=== PATIENT | female | born 1925 | race Caucasian/White ===

== ENCOUNTER 2016-08-20 01:13 | Inpatient (IN) | payer MEDICARE, OTHER ==
[~2016-08-20] VITALS: Ht 162.6 cm; Wt 83.5 kg
--- NOTE | ~2016-08-20 | H ---
[facility] [place] [address] HISTORY AND PHYSICAL Name: DEENA ARRIAGA I Room #: 437-P [facility] IN M.R.#: [id number] Admission: 08/20/16 Attend Phys: Trevor Matthews Discharge: 08/22/16 Date of : [birth year] Report #: [id number] THIS REPORT FOR: //name// CC: FAM physician/PCP Trevor Matthews DATE OF SERVICE: 08/20/2016 ATTENDING PHYSICIAN: Dr. Matthews. PRIMARY CARE PHYSICIAN: Dr. Juan David Jonas. CHIEF COMPLAINT: Shortness of breath. HISTORY OF PRESENT ILLNESS: The patient is an 89-year-old female who denies any prior history of lung disease or congestive heart failure. She says she has had increasing shortness of breath over the last month, but it has been significantly worse in the last 4 days. She has had some associated running nose, cough which has been nonproductive and dizziness. Her friend came to see her today and actually called EMS because of her labored breathing. When EMS arrived, her oxygen saturation was 83% on room air. She has never required oxygen at home. She was taken initially to [facility] and was evaluated there and placed on BiPAP because of respiratory distress. She did receive Solu-Medrol, DuoNeb, nitro paste as well as a dose of Lasix 40 mg IV. She requested to be transferred to [facility] because she had been here previously and her primary care physician is closer. She arrived here this morning on nonbreather and states that she is breathing much better at this time. She really did not have much diuresis after she was given Lasix. She is denying any chest pain or palpitations. She has noticed slight increase in her chronic lower extremity edema over the last few weeks, but she really does not weigh herself. She denies any history of DVT or PE. She did have a CTA of the chest done at [facility], which did not show any PE or dissection, but her CT and chest x-ray did show congestive heart failure. PAST MEDICAL HISTORY: Hypertension, melanoma, breast cancer, endometrial cancer, osteoarthritis. PAST SURGICAL HISTORY: Left and right lumpectomy, total abdominal hysterectomy with bilateral salpingo-oophorectomy, left ankle replacement, left knee scope and ganglionectomy. ALLERGIES: FOSAMAX cause tongue swelling. HOME MEDICATIONS: Have not yet been up dated. SOCIAL HISTORY: The patient is a . She lives alone. She has retired. [facility] [address] [place] [address] HISTORY AND PHYSICAL Name: DEENA ARRIAGA I Room #: 437-P [facility] IN .R.#: [id number] Admission: 08/20/16 Attend Phys: Trevor Matthews Discharge: 08/22/16 Date of : [birth year] Report #: [id number] She is a never smoker, denies any alcohol use. FAMILY HISTORY: Significant for breast cancer. REVIEW OF SYSTEMS: The patient does have a history of breast cancer and has been followed by Dr. Niño. She underwent surgery with bilateral lumpectomies as well as radiation treatment and had been on tamoxifen. She says she had a recent visit with Dr. Niño and was told she is in remission. All other 12-point review of systems was reviewed with the patient, otherwise negative unless stated in HPI. PHYSICAL EXAMINATION: GENERAL: The patient is an alert female in no acute distress. VITAL SIGNS: Temperature is 36.7, heart rate 79, respirations 22, blood pressure is 168/49, oxygen is 92% on 5 liters nasal cannula. HEENT: PERRLA. Sclerae is nonicteric. Oral mucosa is pink and moist. NECK: Supple, no JVD noted. CARDIAC: Heart tones are regular with an occasional skipped beat. No murmurs, rubs or gallops. RESPIRATORY: Breath sounds are clear bilateral upper lobes. She does have fine crackles in bilateral bases. Breathing is still somewhat labored and she is using her abdominal muscles, but she is able to speak in full sentences. VASCULAR: She does have 2 to 3+ bilateral lower extremity edema that extends up to her knees. Pedal pulses are 2+. NEUROLOGIC: The patient is alert and oriented x 3. Speech is clear. She is moving all extremities equally. No focal weakness noted. LABORATORY DATA AND DIAGNOSTICS: WBC is 12.9, hemoglobin 12.6, platelets 400. Sodium 141, potassium 4.3, BUN 17, creatinine 0.9, glucose 115. LFTs are within normal limits. INR is 1.1. Cardiac enzymes are negative. BNP 4175. D-dimer 1.03. EKG showing sinus rhythm. Chest x-ray showed congestive heart failure and CT angio of the chest was negative for PE and dissection, but did show heart failure as well. The labs and imaging were all done at [facility]. ASSESSMENT AND PLAN: 1. Acute fluid overload. She likely has congestive heart failure. EF is unknown at this time. We will check an echocardiogram this morning. We will give another dose of IV Lasix now. Check ABGs. If she remains hypoxic, we will place back on BiPAP, but she has significantly improved. Continue with breathing treatments. 2. Hypertension. We will try to clarify her home medications and resume. 3. History of breast cancer. She is currently in remission and off any treatment. 4. Deep vein thrombosis prophylaxis: Start Lovenox. [facility] [address] [place] [address] HISTORY AND PHYSICAL Name: DEENA ARRIAGA I Room #: 437-P [facility] IN M.R.#: [id number] Admission: 08/20/16 Attend Phys: Trevor Matthews Discharge: 08/22/16 Date of : [birth year] Report #: [id number] We will continue to follow the patient closely throughout the hospitalization and make changes based on clinical status. <ELECTRONICALLY SIGNED> By: LADONNA Dean 08/23/16 0646 0614 0735 LADONNA Dean /nt
--- NOTE | ~2016-08-20 | EKG ---
[address] [address] ELECTROCARDIOGRAM REPORT Name: DEENA ARRIAGA I Room #: 437-P ADM IN M.R.#: [id number] Admission: 08/20/16 Attend Phys: Trevor Matthews Discharge: Date of : [birth year] Report #: [id number] THIS REPORT FOR: //name// [facility] Test Date: 2016-08-20 Test Time: 07:03:53 Pat Name: DEENA ARRIAGA Department: Room: 437 P Gender: F Software Test Specialist: Erlin MOREJON : 1925 Requested By: Manisha Rock Order Number: [id number] MD: Kiran Medel Measurements Intervals [place] Rate: 79 P: 69 RI: 175 QRS: 62 QRSD: 94 T: -16 QT: 443 QTc: 508 Interpretive Statements Sinus rhythm Borderline T abnormalities, inferior leads Prolonged QT interval No previous ECG available for comparison Electronically Signed On 08-20-2016 9:02:45 ROUTE DRIVER by Kiran Medel [email or web address] <ELECTRONICALLY SIGNED> By: Kiran Medel MD 08/20/16901 2 2 Kiran Medel MD /RICK
--- NOTE | ~2016-08-20 | 2DMMODE ---
[facility] [place] [address] 2 D/M-MODE ECHOCARDIOGRAM Name: DEENA ARRIAGA I Room #: 437-P [facility] IN .R.#: [id number] Admission: 08/20/16 Attend Phys: Trevor Orellana Discharge: Date of : [birth year] Date of Service: 08/20/16 0919 Report #: [id number] THIS REPORT FOR: //name// Transthoracic Echocardiography Ordering physician: Manisha Rock Referring physician: Juan David Jonas Kate E. Clearing Supervisor: Shelley Mehta Indications/History: Heart failure, SOA. Hx: HTN BP: 139 / HR: 83bpm Height: 64in Weight: 184.6lb 63 Study data: M-mode, complete 2D, complete spectral Doppler, and color Doppler. Location: Echo laboratory. Routine. Image quality was adequate. 2D measurements Normal Normal LVID ED 44.2mm 36-57 IVS ED 11.2mm 6-11 LVID ES 27.2mm 23-40 LVPW ED 11mm 6-11 LA volume 41ml/m2 16-28 AoRoot diam 28.8mm 21-37 index ED LVOT diameter 18mm 18-23 Findings: Left ventricle: The cavity size was normal. Wall thickness was normal. Systolic function was normal. The estimated ejection fraction was in the range of 60% to 65%. Wall motion was normal. Right ventricle: The cavity size was normal. Systolic function was normal. Right atrium: The atrium was normal in size. Left atrium: The atrium was moderately dilated. Volume index: 41ml/m2 (S). Aortic valve: Thickened andcalcified leaflets. Doppler: There was mild stenosis. Mild regurgitation. Peak velocity: 246.4cm/s (S). Mean gradient: 12.9mm Hg (S). [facility] [address] [place] [address] 2 D/M-MODE ECHOCARDIOGRAM Name: DEENA ARRIAGA I Room #: 437-P [facility] IN M.R.#: [id number] Admission: 08/20/16 Attend Phys: Trevor Orellana Discharge: Date of : [birth year] Date of Service: 08/20/16 0919 Report #: [id number] Peak gradient: 24.3mm Hg (S). Mitral valve: Mildly thickened, mildly calcified leaflets . Doppler: There was no evidence for stenosis. Moderate to severe regurgitation. Peak E-wave velocity: 163.2cm/s. Peak gradient: 10.7mm Hg (D). Peak A-wave velocity: 106.4cm/s. Tricuspid valve: Structurally normal valve. Doppler: There was no evidence for stenosis. Mild-moderate regurgitation. Regurgitant peak velocity: 347.2cm/s. Peak RV-RA gradient: 48mm Hg (S). Pulmonic valve: Structurally normal valve. Doppler: There was no evidence for stenosis. Trivial regurgitation. Pericardium: There was no pericardial effusion. Pleura: There was a right pleural effusion. There was a left pleural effusion. Aorta: Aortic root: The aortic root was normal in size. Pulmonary artery: Systolic pressure was estimated to be 53mm Hg. Diastolic function: Features are consistent with a pseudonormal left ventricular filling pattern, with concomitant abnormal relaxation and increased filling pressure (grade 2 diastolic dysfunction). Systemic veins: Inferior vena cava: The vessel was normal in size; the respirophasic diameter changes were in the normal range (= 50%). Conclusions 1. Left ventricle: The cavity size was normal. Wall thickness was normal. Systolic function was normal. The estimated ejection fraction was in the range of 60% to 65%. 2. Left atrium: The atrium was moderately dilated. 3. Aortic valve: Thickened andcalcified leaflets. Mild regurgitation. 4. Mitral valve: Mildly thickened, mildly calcified leaflets . Moderate to severe regurgitation. 5. Pulmonic valve: Trivial regurgitation. 6. Tricuspid valve: Mild-moderate regurgitation. [facility] [address] [place] [address] 2 D/M-MODE ECHOCARDIOGRAM Name: DEENA ARRIAGA I Room #: 437-P [facility] IN [facility].#: [id number] Admission: 08/20/16 Attend Phys: Trevor Orellana Discharge: Date of : [birth year] Date of Service: 08/20/16918 Report #: [id number] 7. Pulmonary arteries: Systolic pressure was estimated to be 53mm Hg. <ELECTRONICALLY SIGNED> By: Dk Lester MD 08/20/16 1221 20 Dk Lester MD /alex
[~2016-08-20 01:13] MED LIST: ACETAMINOPHEN-1 EACH PO; ATENOLOL 50 MG50 M1 PO; BYSTOLIC 5 MG5 M1 PO; CALCIUM OYSTER500 MG PO; CHLORTHALIDONE25 MG PO; CITALOPRAM HBR40 MG; CLEOCIN HCL300 MG PO; CLONIDINE TTS TOP; DIPHENHYDRAMINE PO; FAMOTIDINE20 MG PO; FISH OIL 1,0001 EAC5 PO; FONDAPARINUX SQ; HYDROCODON-ACE1 EACH PO; LOVASTAT20 PO; MAG-OX 400 TAB400 M1 PO; MEDROLDOSEPACK; MIRALAX255 GM PO; MULTIVITAMINS PO; NOLVADEX20 MG PO; NORCO 5-325 TA1 EACH PO; NORVASC5 MG; POTASSIUM20 PO; PROVERA2.5 MG PO; TYLENOL PO; VITAMIN D400 UNI1 PO; VITAMIN E PO
[2016-08-20 02:30] VITALS: BP 156/79
[2016-08-20 04:00] LABS: ABG SAMPLE TYPE ARTERIAL; BE(vivo) -0.1 mmol/L (-2 to +3); HCO3 24.8 mmol/L (22.0-26.0); LACTATE 1.28 mmol/L (0.5-2.0); O2Hb 90.9 % (92.0-98.0); PCO2 41.5 mmHg (35.0-45.0); PO2 62.3 mmHg (80.0-100.0); pH 7.395 (7.360-7.450); sO2 91.8 % (92.0-98.0); tCO2 26.1 mmol/L (24.0-30.0)
[2016-08-20 04:01] LABS: STICK SITE RRA
[2016-08-20 04:48] LABS: HEMATOCRIT 38.4 % (37.0-47.0); HEMOGLOBIN 12.8 gm/dL (12.0-15.0); MCH 31.4 pg (26.0-34.0); MCHC 33.5 % (28.0-37.0); MCV 93.8 fL (80.0-100.0); RBC 4.09 mil/uL (4.20-5.00); RDW 12.6 % (10.5-14.5); WBC 10.5 thou/uL (4.0-11.0)
[2016-08-20 05:10] LABS: ANION GAP 10 mmol/L (7-16); BUN 16 mg/dL (7-18); CALCIUM 8.4 mg/dL (8.5-10.1); CHLORIDE 108 mmol/L (98-107); CHOLESTEROL 176 mg/dL (<200); CO2 27 mmol/L (21-32); CREATININE 0.9 mg/dL (0.6-1.3); GLUCOSE 147 mg/dL (70-99); HDL CHOLESTEROL 51 mg/dL (>40); LDL CHOLESTEROL 114 mg/dL (<100); MAGNESIUM 2.2 mg/dL (1.8-2.4); POTASSIUM 4.2 mmol/L (3.5-5.1); SODIUM 145 mmol/L (136-145); TC:HDL 3.5 Ratio (Not establshd); TRIGLYCERIDE 55 mg/dL (<150); TROPONIN-I < 0.04 ng/mL (<0.04-0.07); VLDL 11 mg/dL (<40)
[2016-08-20 05:29] LABS: SERUM ASSESSMENT Clear
[2016-08-20 08:00] VITALS: BP 139/63
[2016-08-20] MEDS ORDERED: LOVASTATIN 20 M20 MG PO (08:54)
[2016-08-20] MEDS ORDERED: CELEXA20 MG PO (08:54)
[2016-08-20] MEDS ORDERED: NORVASC5 MG PO (08:55)
[2016-08-20 12:00] VITALS: BP 149/49
[2016-08-20 16:00] VITALS: BP 142/64
[2016-08-20 19:35] VITALS: BP 142/57
[2016-08-21 03:30] VITALS: BP 143/71
[2016-08-21 06:30] LABS: ANION GAP 10 mmol/L (7-16); BUN 21 mg/dL (7-18); CHLORIDE 107 mmol/L (98-107); CO2 28 mmol/L (21-32); POTASSIUM 4.6 mmol/L (3.5-5.1); SODIUM 145 mmol/L (136-145)
[2016-08-21 06:31] LABS: ALBUMIN 2.9 g/dL (3.4-5.0); CALCIUM 8.3 mg/dL (8.5-10.1); CREATININE 1.1 mg/dL (0.6-1.3); GLUCOSE 90 mg/dL (70-99); MAGNESIUM 2.1 mg/dL (1.8-2.4); PHOSPHORUS 3.7 mg/dL (2.5-4.9); TROPONIN-I < 0.04 ng/mL (<0.04-0.07)
[2016-08-21 08:00] VITALS: BP 126/59
[2016-08-21 12:00] VITALS: BP 116/85
[2016-08-21 15:46] VITALS: BP 136/61
[2016-08-21 20:10] VITALS: BP 119/50; BP 119/57
[2016-08-22] VITALS (7 sets, daily range): BP systolic 121–138; BP diastolic 51–81
[2016-08-22 05:52] LABS: ALBUMIN 2.9 g/dL (3.4-5.0); CALCIUM 7.9 mg/dL (8.5-10.1); CREATININE 1.1 mg/dL (0.6-1.3); PHOSPHORUS 4.2 mg/dL (2.5-4.9); POTASSIUM 3.7 mmol/L (3.5-5.1)
[2016-08-22] MEDS ORDERED: LASIX 40 MG TAB40 M1 PO (10:51)
[2016-08-22] MEDS ORDERED: ASPIRIN325 PO (10:51)
[2016-08-22] MEDS ORDERED: CARVEDILOL3.125 MG PO (10:51)
[2016-08-22] MEDS ORDERED: OXYGEN MISCELL (15:00)
[2016-08-29 13:38] LABS: FREE T4 1.11; TSH 1.11
[2016-10-18] MEDS ORDERED: CELEXA20 MG PO (11:41)
[2016-10-18] MEDS ORDERED: KLOR-CON 1010 MEQ PO (11:42)
[2016-10-18] MEDS ORDERED: POTASSIUM20 PO (11:42)
[2016-10-19] MEDS ORDERED: LISINOPRIL5 MG PO (12:20)
[2016-10-19] MEDS ORDERED: COREG6.25 MG PO (12:20)
[2016-10-19] MEDS ORDERED: AUGMENTIN 500-1 EACH PO (12:30)
[2016-10-19] MEDS ORDERED: MIRALAX17 GM PO (12:31)
[2016-10-19] MEDS ORDERED: MUCINEX TA600 MG/TA1 PO (12:31)
[2016-10-19] MEDS ORDERED: DUONEB 2.5-0.5 M3 ML INH (12:41)
== END 2016-08-22 18:35 | disposition home health service (06) | DRG 291 ==
LOC: 4S 01:13
PROVIDERS: Hospitalist; Nurse Practitioner Acute Care
PROC: 5A09457 Assistance with Respiratory Ventilation, 24-96 Consecutive Hours, Continuous Positive Airway Pressure (ICD-10-PCS; principal; 2016-08-21)
DX: I50.23 Acute on chronic systolic (congestive) heart failure (principal); J96.00 Acute respiratory failure, unspecified whether with hypoxia or hypercapnia; I11.0 Hypertensive heart disease with heart failure; M19.90 Unspecified osteoarthritis, unspecified site; Z96.662 Presence of left artificial ankle joint; Z60.2 Problems related to living alone; E87.70 Fluid overload, unspecified; I34.0 Nonrheumatic mitral (valve) insufficiency; Z85.3 Personal history of malignant neoplasm of breast; Z85.42 Personal history of malignant neoplasm of other parts of uterus; Z90.710 Acquired absence of both cervix and uterus; Z88.8 Allergy status to other drugs, medicaments and biological substances; Z98.890 Other specified postprocedural states; Z90.722 Acquired absence of ovaries, bilateral; Z79.899 Other long term (current) drug therapy; Z79.82 Long term (current) use of aspirin
CPT/HCPCS: 10100

== ENCOUNTER 2016-11-02 04:47 | Inpatient (IN) | payer MEDICARE, OTHER ==
[2016-11-02] VITALS (34 sets, daily range): BP systolic 95–154; BP diastolic 36–109
[~2016-11-02] VITALS: Ht 165.1 cm; Wt 79.0 kg
--- NOTE | ~2016-11-02 | D ---
[facility] [place] [address] DISCHARGE SUMMARY Name: DEENA ARRIAGA I Room #: 311-P [facility] IN M.R.#: [id number] Admission: 11/02/16 Attend Phys: Gordo Dimas MD Discharge: 11/07/16 Date of : [birth year] Report #: [id number] THIS REPORT FOR: //name// CC: Gordo Jonas DATE OF SERVICE: 11/07/2016 DISCHARGE DIAGNOSES: 1. Acute on chronic hypoxemic respiratory failure secondary to pulmonary edema. 2. Pleural effusion likely secondary to acute diastolic congestive heart failure and status post thoracentesis. 3. Atrial fibrillation. 4. Debility. CONSULTS: Pulmonary, Dr. Martinez, Cardiology, Dr. Lester. PROCEDURES: She had 2 thoracenteses in the right lung. HOSPITAL COURSE: The patient is an 89-year-old female with a history of diastolic heart failure, pulmonary hypertension, severe mitral regurg, prior breast surgery from breast cancer, presented to the ER secondary to shortness of breath. Please see details of admission dictated by Dr. Gordo Dimas on November 02. Workup in the ER revealed the patient had pleural effusions, felt to be related to her cardiac history. She was admitted. Cardiology was consulted. Additionally, she was in respiratory failure and Pulmonary was consulted as well. She underwent a CT scan of the chest that did not show PE, but did show the pleural effusion. She underwent a thoracentesis on the right. It was felt that she did not have pneumonia. The CT did show mediastinal lymphadenopathy. For details of the hospital course, please see [facility] as she was here for prolonged stay. The patient was diuresed and as stated had 3 thoracenteses. She is now down to her baseline 2 liters of home O2. She denies any chest pain or shortness of breath. A CT scan also showed possible mass in the right breast. The patient did have surgery there. Ultrasound showed that it was scar tissue. She is now on oral diuretics and has been cleared for discharge by consultants. Her fluid studies did not show any malignancy. DISCHARGE DISPOSITION: To [facility] facility. DISCHARGE PHYSICAL EXAMINATION: VITAL SIGNS: Temperature 97, pulse 66, blood pressure 104/30, O2 sat 98% on 2 liters. [facility] [address] [place] [address] DISCHARGE SUMMARY Name: DEENA ARRIAGA I Room #: [facility] IN [facility].#: [id number] Admission: 11/02/16 Attend Phys: Gordo Dimas MD Discharge: 11/07/16 Date of : [birth year] Report #: [id number] GENERAL: She is awake, alert, answering questions appropriately, in no acute respiratory distress. HEENT: Normocephalic, atraumatic. Pupils equal. NECK: Supple. CARDIOVASCULAR: Regular rate and rhythm. No murmurs. LUNGS: Clear to auscultation bilaterally. No crackles or wheeze. ABDOMEN: Soft. No distention or tenderness. EXTREMITIES: No edema. NEUROLOGIC: Nonfocal. DISCHARGE MEDICATIONS: She will go on Tylenol p.r.n., Augmentin 500 b.i.d., aspirin 325 daily, Coreg 6.25 mg b.i.d., Celexa 40 mg daily, Lasix 40 b.i.d., Mucinex 600 b.i.d., DuoNebs, Zestril 5 daily, Mevacor 20 daily, MiraLax 17 grams daily, K-Dur 20 mEq b.i.d. DIET: Low sodium, cardiac, fluid restricted diet. ACTIVITY: As tolerated. FOLLOWUP: With primary care in 1 week. Follow up with Cardiology in 1 week. Chest x-ray, CBC and CMP in 1 week and seek immediate medical attention if symptoms worsen or recur or if she has any other significant medical concerns. Discharge planning took 40 minutes. I explained to her discharge diagnoses, treatment plan and appropriate followup in detail. She had no further questions. By: 1723 0045 My Uriah Villarreal MD /nt
--- NOTE | ~2016-11-02 | CNG ---
[facility] [place] [address] CYTO-NONGYN REPORT PROCEDURE Name: SHAWANDA ARRIAGA I Room #: 311-P ADM IN M.R.#: [id number] Admission: 11/02/16 Date of : [birth year] Discharge: Report #: [id number] Path Case #: [id number] CYTOPATHOLOGY REPORT COLLECTION DATE: 11/05/2016 RECEIVED DATE: 11/05/2016 SUBMITTING PHYS: Dr. Wing Caro OTHER PHYS: Dr. Allen Jonas CLINICAL HISTORY: CHF, Respiratory distress. SPECIMEN(S) RECEIVED: A.Pleural fluid * * * * * * * * * * * * FINAL DIAGNOSIS: A. Pleural fluid: - No malignant epithelial cells identified. Mesothelial cells and a few inflammatory cells identified. PATHOLOGIST: Shirley Hummel M.D. REPORT ELECTRONICALLY SIGNED BY: Shirley Hummel M.D. DATE/TIME: 11/06/2016 15:27 * * * * * * * * * * * * GROSS PATHOLOGY: A. Pleural fluid: The specimen is submitted unfixed, labeled "Shawanda Arriaga I". Received by the Cytology Department is 15 mL of clear yellow fluid. One ThinPrep slide and a cell block were prepared. (clt 11.05.2016) CREDIT CARD ASSOCIATE(S): SERGEI Be[facility] INITIAL CPT CODE(S): A; 28203, 50966 Professional services performed by [facility] at [facility] [address], [place] [address] Technical services performed by [facility] at [address] [place] [address]., [address], [address]. [facility] [address] [place] [address], [facility] [id number] [place] [address] [place] [address] CYTO-NONGYN REPORT PROCEDURE Name: SHAWANDA ARRIAGA I Room #: 311-P ADM IN M.R.#: [id number] Admission: 11/02/16 Date of : [birth year] Discharge: Report #: [id number] Path Case #: [id number] PHONE: [phone] DIRECTOR: Cliff Moses M.D. * * * END OF REPORT * * *
--- NOTE | ~2016-11-02 | HC ---
[facility] [place] [address] CONSULTATION Name: DEENA ARRIAGA I Room #: 311-P [facility] IN M.R.#: [id number] Admission: 11/02/16 Attend Phys: Gordo Dimas MD Discharge: 11/07/16 Date of : [birth year] Report #: [id number] THIS REPORT FOR: //name// CC: Gordo Jonas DATE OF SERVICE: 11/04/2016 HISTORY OF PRESENT ILLNESS: The patient is an 89-year-old white female who was known from a prior hospitalization 10/17/2016 through 10/19/2016 when she was noted to have a pleural effusion and underwent thoracentesis, was treated for congestive heart failure. She is chronic O2 dependent on 3 liters. The patient has been home and has been doing quite well, ambulatory, not utilizing a gait aid in the house, uses a cane when out in the community with family. She started having worsening shortness of breath on 11/02/2016 and was readmitted. She was diagnosed with acute hypoxic respiratory failure on chronic respiratory failure. She is noted to have severe initial hypertension. She also has diastolic congestive heart failure. The patient is currently in the intensive care unit. She has pulmonary infiltrates that are being treated for healthcare-associated pneumonia. She is noted to have atrial fibrillation. There was no evidence of pulmonary embolism. We are seeing her in rehabilitation medicine consultation. PAST MEDICAL HISTORY: Includes breast cancer bilaterally with lumpectomy, left ankle ORIF, hypertension, hysterectomy, history of falls, apparently had a left total ankle replacement approximately 5 years ago. MEDICATIONS: Please see the full medication listing. HABITS: No history of tobacco or ETOH abuse. SOCIAL HISTORY: Lives in a house with her 85-year-old sister. The patient had apparently been driving up until August. There is a daughter in the area and some cousins that check in. The patient and sister are living in a ranch style house, 2 steps. No gait aid in the house but used a cane in the community. REVIEW OF SYSTEMS: Complains of being overall weak, fatigued. Did not offer any current complaints of chest pain or abdominal discomfort. Notes some shortness of breath with limited activity. Did not offer any focal extremity pain complaints. PHYSICAL EXAMINATION: An 89-year-old white female seen in the intensive care unit. She is alert, pleasant. She is on nasal prong O2, currently 3 liters. Temperature is 98.4, pulse 65, respirations 20, blood pressure 116/45. Facies are symmetric. She has functional range of motion of both upper extremities. [address] [address] CONSULTATION Name: DEENA ARRIAGA I Room #: 311-P [facility] IN .R.#: [id number] Admission: 11/02/16 Attend Phys: Gordo Dimas MD Discharge: 11/07/16 Date of : [birth year] Report #: [id number] Strength is a grade 4- to 3+/5. DTRs are trace to 1. In her lower extremities, there is no focal calf swelling, functional range of motion, strength is grade 3+/5. DTRs are decreased. There is no distal edema that was noted. No obvious erythema. Tone appeared to be intact. ASSESSMENT: An 89-year-old white female with the following problem list: 1. Medical complexity with generalized debilitation. 2. Acute on chronic hypoxic respiratory failure. 3. Initial severe hypertension. 4. Diastolic heart failure. 5. Pulmonary infiltrates, being treated for healthcare-associated pneumonia. 6. History of atrial fibrillation. 7. Past history of breast cancer bilaterally. 8. History of falls. 9. Prior left ankle open reduction internal fixation. PLAN: Agree with physical therapy involvement as ordered. We will add occupational therapy. She may be a candidate for a short acute in-hospital inpatient rehabilitation stay depending upon how she does. She does have the above noted medical complexity and is being followed by multiple consultants physicians that could continue to follow with her if she were to come over for a short acute in-hospital inpatient rehabilitation stay. At this point, we will follow along with you and see how she does. <ELECTRONICALLY SIGNED> By: Aaron Benitez MD 11/08/16 1539 1108 1317 Aaron Benitez MD /nt
--- NOTE | ~2016-11-02 | 2DMMODE ---
[facility] [place] [address] 2 D/M-MODE ECHOCARDIOGRAM Name: DEENA ARRIAGA I Room #: 242-P [facility] IN ..#: [id number] Admission: 11/02/16 Attend Phys: Randall Nogueira Discharge: Date of : [birth year] Date of Service: 11/02/16 1605 Report #: [id number] THIS REPORT FOR: //name// APPROVED REPORT EXAM: Comprehensive 2D, Doppler, and color-flow Echocardiogram Patient Location: Bedside Blood Pressure: 134/109 mmHg HR: 71 bpm Rhythm: Atrial Fibrillation Other Information Study Quality: Adequate Indications COPD Dyspnea Hypertension/HDD Congenital Heart Disease 2D Dimensions IVSd: 11.07 (7-11mm) LVOT Diam: 18.00 (18-24mm) LVDd: 39.02 mm PWd: 10.89 (7-11mm) Ascending Aorta: 32.33 mm LVDs: 30.11 (25-40mm) M-Mode Dimensions IVSd: 11.00 (7-11mm) LVDd: 39.00 (40-56mm) PWd: 11.00 (7-11mm) LVDs: 30.00 (20-38mm) Volumes Left Atrial Volume (Systole) Single Plane 4CH: 86.88 mL Single Plane 2CH: 77.34 mL LA ESV Index: 50.00 mL/m2 Aortic Valve AoV Peak Justen.: 1.77 m/s AI PHT: 687.97 ms AO Peak Gr.: 12.67 mmHg LV Max P.61 mmHg LV Max: 0.80 m/s [facility] [address] [place] [address] 2 D/M-MODE ECHOCARDIOGRAM Name: DEENA ARRIAGA I Room #: 242-P ADM IN [facility].#: [id number] Admission: 11/02/16 Attend Phys: Randall Nogueira Discharge: Date of : [birth year] Date of Service: 11/02/16 1605 Report #: [id number] Vmax: 3.20 m/s AI Limestone: 1.37 m/s2 Pulmonary Valve PV Peak Justen.: 1.06 m/s PV Peak Gr.: 4.17 mmHg MD End Vmax: 1.06 m/s Tricuspid Valve TR Peak Justen.: 2.67 m/s RAP Estimate: 5.00 mmHg TR Peak Gr.: 29.48 mmHg Left Ventricle The left ventricle is normal size. There is normal LV segmental wall motion. There is normal left ventricular wall thickness. Left ventricular systolic function is normal. The left ventricular ejection fraction is within the normal range. LVEF is 65-70%. Unable to assess diastolic function due to a-fib. Right Ventricle The right ventricle is normal size. The right ventricular systolic function is normal. Atria Left atrium is severely dilated. Right atrium is mildly dilated. Aortic Valve The Aortic valve is sclerotic. Mild aortic regurgitation. There is no aortic valvular stenosis. Mitral Valve Mitral valve leaflets are thickened. Moderate to severe mitral regurgitation. Tricuspid Valve The tricuspid valve is normal in structure. Moderate tricuspid regurgitation. Pulmonic Valve The pulmonary valve is normal in structure. Trace pulmonic regurgitation. Great Vessels The aortic root is normal in size. IVC is normal in size and collapses >50% with inspiration. [facility] [address] [place] [address] 2 D/M-MODE ECHOCARDIOGRAM Name: CORINADEENA I Room #: 242-P ADM IN M.R.#: [id number] Admission: 11/02/16 Attend Phys: Randall Nogueira Discharge: Date of : [birth year] Date of Service: 11/02/16 1605 Report #: [id number] Pericardium There is no pericardial effusion. <Conclusion> Normal echocardiogram. The left ventricle is normal size. There is normal left ventricular wall thickness. There is normal LV segmental wall motion. LVEF is 65-70%. Unable to assess diastolic function due to a-fib. The right ventricle is normal size. Left atrium is severely dilated. The Aortic valve is sclerotic. Moderate to severe mitral regurgitation. Mitral valve leaflets are thickened. The tricuspid valve is normal in structure. Moderate tricuspid regurgitation. The aortic root is normal in size. There is no pericardial effusion. <ELECTRONICALLY SIGNED> By: Newton Marion MD, FACC 11/02/16 1605 1605 160 Newton Marion MD, FACC /INF
--- NOTE | ~2016-11-02 | EKG ---
[address] [place] [address] ELECTROCARDIOGRAM REPORT Name: DEENA ARRIAGA I Room #: 242-P ADM IN M.R.#: [id number] Admission: 11/02/16 Attend Phys: Gordo Dimas MD Discharge: Date of : [birth year] Report #: [id number] THIS REPORT FOR: //name// [facility] ED Test Date: 2016-11-02 Test Time: 04:53:44 Pat Name: DEENA ARRIAGA Department: Room: 242 Gender: F Marketer: JENNIE : 1925 Requested By: Varsha Bose Order Number: [id number] MD: Edin Damon Measurements Intervals [place] Rate: 76 P: 49 TN: 150 QRS: 41 QRSD: 103 T: 3 QT: 383 QTc: 431 Interpretive Statements Sinus rhythm Atrial premature complexes Probable left atrial enlargement Compared to ECG 10/17/2016 01:28:54 Atrial premature complex(es) now present Ventricular premature complex(es) no longer present Electronically Signed On 11-03-2016 15:14:04 CDT by Edin Damon [email or web address] <ELECTRONICALLY SIGNED> By: Edin Damon MD, [facility] 11/03/16 1514 0453 0453 Edin Damon MD, [facility] /EPI
--- NOTE | ~2016-11-02 | HC ---
[facility] [place] [address] CONSULTATION Name: DEENA ARRIAGA I Room #: 311-P ADM IN M.R.#: [id number] Admission: 11/02/16 Attend Phys: Gordo Dimas MD Discharge: Date of : [birth year] Report #: [id number] THIS REPORT FOR: //name// CC: Gordo Jonas DATE OF SERVICE: 11/02/2016 DATE OF SERVICE: 11/02/2016. REFERRING PROVIDER: Dr. Gordo Dimas. REASON FOR CONSULTATION: Respiratory failure. CHIEF COMPLAINT: Shortness of breath. HISTORY OF PRESENT ILLNESS: Our group was asked to see the patient in consultation while hospitalized at [facility]. She has been hospitalized here very recently, is discharged about 2 weeks ago, she had bilateral pleural effusions and pulmonary edema at that time causing respiratory failure. She had some increasing shortness of breath prompted Emergency Room visit early this morning. The patient also noted to be severely hypertensive and was placed on a CPAP because of hypoxemia, subsequently improved on BiPAP in the Emergency Department and transferred up to the ICU for further management. She notes no cough or congestion, is not wheezing although is not very good historian at this time. CURRENT INPATIENT MEDICATIONS: Include atorvastatin, enoxaparin, carvedilol, Lasix, lisinopril, DuoNebs, nitroglycerin drip. PAST MEDICAL HISTORY: 1. History of chronic obstructive pulmonary disease. 2. Chronic hypoxemia, on supplemental O2, 3 liters at home. 3. History of diastolic congestive heart failure. 4. History of moderate pulmonary hypertension. 5. History of zuivjalm-cf-bpuveo mitral regurgitation. PAST SURGICAL HISTORY: Includes left and right lumpectomy, abdominal hysterectomy and left ankle replacement. ALLERGIES: INCLUDE FOSAMAX. SOCIAL HISTORY: The patient is , currently lives alone. Never smoker. FAMILY HISTORY: Noncontributory due to advanced age. [facility] [address] [place] [address] CONSULTATION Name: DEENA ARRIAGA I Room #: 311-P [facility] IN [facility].#: [id number] Admission: 11/02/16 Attend Phys: Gordo Dimas MD Discharge: Date of : [birth year] Report #: [id number] REVIEW OF SYSTEMS: Difficult to obtain due to BiPAP being in place. Denies any headaches, rhinorrhea or dysphagia, chest pain, palpitations, nausea, vomiting or constipation. PHYSICAL EXAMINATION: VITAL SIGNS: Afebrile, pulse 50, respiratory rate 16 on BiPAP, blood pressure 133/64. GENERAL: This is a pleasant elderly woman on BiPAP, resting comfortably. ENT: Dry oropharynx. NECK: Supple, no lymphadenopathy. LUNGS: Diminished with some inspiratory crackles noted throughout. CARDIOVASCULAR: Heart was regular. No murmurs noted. ABDOMEN: Soft, nontender, no masses, no hepatosplenomegaly. EXTREMITIES: Warm, 2+ pulses with 1+ edema. INTEGUMENT: Without rash. LABORATORY DATA: White blood cell count , hemoglobin 12, hematocrit 37, platelet count 332. Sodium 143, potassium 4.9, chloride 104, bicarbonate 32, BUN 17, creatinine 1.2, glucose 140, proBNP was 2362, initial arterial blood gas showed a pH 7.24, pCO2 of 70, pO2 102, bicarbonate 31, on BiPAP of 14/6 and 80%. Chest x-ray reveals significant cardiomegaly and small bilateral pleural effusions, bilateral patchy hazy opacities, may be infiltrates or effusions. IMPRESSION: 1. Decompensating congestive heart failure. 2. Acute hypercapnic and hypoxemic respiratory failure, improving with BiPAP. 3. Pulmonary infiltrates and possible healthcare-associated pneumonia given recent admission. SUGGESTIONS: 1. Continue with BiPAP for now. 2. Follow up arterial blood gas. 3. Bronchodilators. 4. Continue with Zosyn and vancomycin. 5. Cardiology consultation. 6. Follow up chest radiograph. 7. Additional recommendations to follow. Thank you for requesting our suggestions. <ELECTRONICALLY SIGNED> By: Allen Martinez MD 11/05/16 1434 1059 1144 Allen Martinez MD /nt
[~2016-11-02 04:47] MED LIST changes: +ASPIRIN325 PO; +AUGMENTIN 500-1 EACH PO; +CARVEDILOL3.125 MG PO; +CELEXA20 MG PO; +COREG6.25 MG PO; +DUONEB 2.5-0.5 M3 ML INH; +KLOR-CON 1010 MEQ PO; +LASIX 40 MG TAB40 M1 PO; +LISINOPRIL5 MG PO; +LOVASTATIN 20 M20 MG PO; +MIRALAX17 GM PO; +MUCINEX TA600 MG/TA1 PO; +NORVASC5 MG PO; +OXYGEN MISCELL
[2016-11-02 05:01] LABS: HEMATOCRIT 37.7 % (37.0-47.0); HEMOGLOBIN 11.9 gm/dL (12.0-15.0); MCH 29.1 pg (26.0-34.0); MCHC 31.6 g/dL (28.0-37.0); MCV 91.9 fL (80.0-100.0); PLATELET COUNT 332 thou/uL (150-400); RDW 14.3 % (10.5-14.5); WBC 18.6 thou/uL (4.0-11.0)
[2016-11-02 05:03] LABS: MANUAL DIFF YES
[2016-11-02 05:28] LABS: ABSOLUTE NEUTROPHILS 16.4 thou/uL (1.4-8.2); TOTAL CELL COUNT 100
[2016-11-02 05:29] LABS: ANISOCYTOSIS SLIGHT
[2016-11-02 05:36] LABS: ABG SAMPLE TYPE ARTERIAL; BE(vivo) 0.1 mmol/L (-2 to +3); HCO3 29.2 mmol/L (22.0-26.0); LACTATE 1.14 mmol/L (0.5-2.0); O2(CT) 17.6 mL/dL (15.0-23.0); O2Hb 96.3 % (92.0-98.0); PO2 102.4 mmHg (80.0-100.0); sO2 96.5 % (92.0-98.0); tCO2 31.4 mmol/L (24.0-30.0)
[2016-11-02 05:37] LABS: PCO2 70.2 mmHg (35.0-45.0); Pressure Support 8 cm H20; STICK SITE L.RADIAL; pH 7.237 (7.360-7.450)
[2016-11-02 06:39] LABS: ALBUMIN 3.3 g/dL (3.4-5.0); CALCIUM 8.8 mg/dL (8.5-10.1); CREATININE 1.2 mg/dL (0.6-1.3); POTASSIUM 4.9 mmol/L (3.5-5.1); TOTAL BILIRUBIN 0.3 mg/dL (<0.1-1.0); TOTAL PROTEIN 6.6 g/dL (6.4-8.2); TROPONIN-I 0.12 ng/mL (<0.04-0.07)
[2016-11-02 08:54] LABS: ABG SAMPLE TYPE ARTERIAL; BE(vivo) 2.2 mmol/L (-2 to +3); HCO3 28.2 mmol/L (22.0-26.0); LACTATE 0.95 mmol/L (0.5-2.0); O2(CT) 17.4 mL/dL (15.0-23.0); O2Hb 96.9 % (92.0-98.0); PCO2 49.4 mmHg (35.0-45.0); PO2 107.2 mmHg (80.0-100.0); pH 7.374 (7.360-7.450); sO2 97.7 % (92.0-98.0); tCO2 29.7 mmol/L (24.0-30.0)
[2016-11-02 08:56] LABS: STICK SITE R.RADIAL
[2016-11-02 10:20] LABS: URINE BILIRUBIN NEGATIVE (Negative); URINE BLOOD NEGATIVE (Negative); URINE COLOR YELLOW; URINE GLUCOSE-RANDOM* NEGATIVE (Negative); URINE KETONES NEGATIVE (Negative); URINE NITRITE NEGATIVE (Negative); URINE PROTEIN (DIPSTICK) NEGATIVE (Negative); URINE UROBILINOGEN 0.2 E.U./dl (0.2-1.0)
[2016-11-03] VITALS (27 sets, daily range): BP systolic 111–142; BP diastolic 33–117
[2016-11-03 05:01] LABS: HEMATOCRIT 29.9 % (37.0-47.0); HEMOGLOBIN 9.8 gm/dL (12.0-15.0); MCH 29.4 pg (26.0-34.0); MCHC 32.8 g/dL (28.0-37.0); MCV 89.5 fL (80.0-100.0); RBC 3.34 mil/uL (4.20-5.00); RDW 13.9 % (10.5-14.5); WBC 11.1 thou/uL (4.0-11.0)
[2016-11-03 05:30] LABS: ALBUMIN 2.6 g/dL (3.4-5.0); CALCIUM 8.5 mg/dL (8.5-10.1); CREATININE 1.4 mg/dL (0.6-1.3); TOTAL BILIRUBIN 0.8 mg/dL (<0.1-1.0); TOTAL PROTEIN 6.1 g/dL (6.4-8.2)
[2016-11-03 05:33] LABS: POTASSIUM 3.5 mmol/L (3.5-5.1)
[2016-11-03 09:19] LABS: MAGNESIUM 1.7 mg/dL (1.8-2.4)
[2016-11-04] VITALS (13 sets, daily range): BP systolic 85–157; BP diastolic 36–89
[2016-11-04 02:00] LABS: HEMATOCRIT 28.8 % (37.0-47.0); HEMOGLOBIN 9.6 gm/dL (12.0-15.0); MCH 29.7 pg (26.0-34.0); MCHC 33.3 g/dL (28.0-37.0); RBC 3.23 mil/uL (4.20-5.00); RDW 13.7 % (10.5-14.5); WBC 10.5 thou/uL (4.0-11.0)
[2016-11-04 02:07] LABS: CREATININE 1.2 mg/dL (0.6-1.3); MAGNESIUM 1.6 mg/dL (1.8-2.4)
[2016-11-04 02:13] LABS: POTASSIUM 2.7 mmol/L (3.5-5.1)
[2016-11-04 08:36] LABS: MAGNESIUM 2.2 mg/dL (1.8-2.4)
[2016-11-05 00:13] VITALS: BP 134/51
[2016-11-05 04:10] VITALS: BP 138/91
[2016-11-05 06:29] LABS: HEMATOCRIT 29.4 % (37.0-47.0); HEMOGLOBIN 9.5 gm/dL (12.0-15.0); MCH 29.1 pg (26.0-34.0); MCHC 32.4 g/dL (28.0-37.0); RBC 3.27 mil/uL (4.20-5.00); RDW 13.8 % (10.5-14.5); WBC 10.7 thou/uL (4.0-11.0)
[2016-11-05 06:44] LABS: CALCIUM 8.1 mg/dL (8.5-10.1); CREATININE 1.2 mg/dL (0.6-1.3); POTASSIUM 3.1 mmol/L (3.5-5.1)
[2016-11-05 08:00] VITALS: BP 125/54
[2016-11-05 12:00] VITALS: BP 105/43
[2016-11-05 13:33] LABS: INR 1.1; PROTIME 11.4 Seconds (9.3-11.4)
[2016-11-05 16:20] LABS: CLARITY SLIGHTLY CLOUDY; COLOR YELLOW; TOTAL VOLUME 57 mL
[2016-11-05 16:30] VITALS: BP 116/64
[2016-11-05 16:39] LABS: BF NUCLEATED CELLS 252; BF RBC 756
[2016-11-05 17:09] LABS: MANUAL DIFF YES
[2016-11-05 17:13] LABS: BF MACROPHAGE 32; BF NEUTROPHILS 4
[2016-11-05 20:45] VITALS: BP 109/61
[2016-11-06 01:07] LABS: INFLUENZA B Negative (Negative); METAPNEUMOVIRUS Negative (Negative)
[2016-11-06 04:10] VITALS: BP 106/60
[2016-11-06 07:59] VITALS: BP 131/51
[2016-11-06] MEDS ORDERED: LASIX 40 MG TAB40 M2 PO (09:38)
[2016-11-06 10:08] LABS: BODY FLUID AMYLASE 24 U/L (()); BODY FLUID GLUCOSE 119 mg/dL (()); BODY FLUID LDH 83 IU/L (()); BODY FLUID PROTEIN 2.9 g/dL (())
[2016-11-06 20:10] VITALS: BP 116/46
[2016-11-07 04:20] VITALS: BP 121/62
[2016-11-07 06:34] LABS: HEMOGLOBIN 9.9 gm/dL (12.0-15.0); MCH 29.7 pg (26.0-34.0); MCHC 33.2 g/dL (28.0-37.0); MCV 89.5 fL (80.0-100.0); RBC 3.35 mil/uL (4.20-5.00); WBC 9.4 thou/uL (4.0-11.0)
[2016-11-07 06:42] LABS: CALCIUM 8.5 mg/dL (8.5-10.1); POTASSIUM 3.4 mmol/L (3.5-5.1)
[2016-11-07 07:43] VITALS: BP 123/57
[2016-11-07] MEDS ORDERED: TYLENOL325 MG PO (10:37)
[2016-11-07 11:09] VITALS: BP 104/30
== END 2016-11-07 14:24 | DRG 177 ==
LOC: ER 04:47 → ICU 06:11 → EROBS 06:11 → ICU 07:37 → 3N 11-04 17:26
PROVIDERS: Emergency Medicine; Family Medicine; Internal Medicine Pulmonary Disease
PROC: 5A09357 Assistance with Respiratory Ventilation, Less than 24 Consecutive Hours, Continuous Positive Airway Pressure (ICD-10-PCS; 2016-11-02)
PROC: 02HV33Z Insertion of Infusion Device into Superior Vena Cava, Percutaneous Approach (ICD-10-PCS; 2016-11-03)
PROC: BB4BZZZ Ultrasonography of Pleura (ICD-10-PCS; principal; 2016-11-05)
PROC: 0W993ZZ Drainage of Right Pleural Cavity, Percutaneous Approach (ICD-10-PCS; principal; 2016-11-05)
DX: J69.0 Pneumonitis due to inhalation of food and vomit (principal); J96.22 Acute and chronic respiratory failure with hypercapnia; J96.21 Acute and chronic respiratory failure with hypoxia; I50.33 Acute on chronic diastolic (congestive) heart failure; J90 Pleural effusion, not elsewhere classified; I11.0 Hypertensive heart disease with heart failure; J44.9 Chronic obstructive pulmonary disease, unspecified; I27.2 Other secondary pulmonary hypertension; Z96.662 Presence of left artificial ankle joint; E87.6 Hypokalemia; I48.91 Unspecified atrial fibrillation; E78.00 Pure hypercholesterolemia, unspecified; I16.0 Hypertensive urgency; D72.829 Elevated white blood cell count, unspecified; Z85.3 Personal history of malignant neoplasm of breast; Z79.899 Other long term (current) drug therapy; Z88.8 Allergy status to other drugs, medicaments and biological substances; Z90.710 Acquired absence of both cervix and uterus
CPT/HCPCS: 10078; 10795; 27000; 27001

== ENCOUNTER 2016-12-28 13:08 | Emergency (ER) | payer MEDICARE, OTHER ==
[~2016-12-28] VITALS: Ht 152.4 cm; Wt 76.2 kg
[~2016-12-28 13:08] MED LIST changes: +LASIX 40 MG TAB40 M2 PO; +TYLENOL325 MG PO
[2016-12-28 13:44] LABS: ABSOLUTE NEUTROPHILS 7.6 thou/uL (1.4-8.2); BASOPHILS 0.4 % (0.0-2.0); EOSINOPHILS 1.1 % (0.0-3.0); HEMATOCRIT 29.5 % (37.0-47.0); HEMOGLOBIN 10.1 gm/dL (12.0-15.0); MCH 31.1 pg (26.0-34.0); MCHC 34.1 g/dL (28.0-37.0); MCV 91.3 fL (80.0-100.0); PLATELET COUNT 286 thou/uL (150-400); POLYS 73.5 % (36.0-66.0); RBC 3.23 mil/uL (4.20-5.00); RDW 14.8 % (10.5-14.5); WBC 10.3 thou/uL (4.0-11.0)
[2016-12-28 13:46] LABS: MANUAL DIFF NO
[2016-12-28 13:54] LABS: CALCIUM 8.3 mg/dL (8.5-10.1); CREATININE 1.1 mg/dL (0.6-1.0); POTASSIUM 4.5 mmol/L (3.5-5.1)
[2016-12-28] MEDS ORDERED: MIRALAX255 GM PO (19:38)
[2016-12-28] MEDS ORDERED: TYLENOL325 MG PO (19:41)
== END 2016-12-28 16:56 | disposition home or self-care (01) ==
LOC: ER 13:08
PROVIDERS: Nurse Practitioner
DX: R06.02 Shortness of breath (principal); I11.0 Hypertensive heart disease with heart failure; I50.9 Heart failure, unspecified; E78.5 Hyperlipidemia, unspecified; Z85.3 Personal history of malignant neoplasm of breast; Z90.710 Acquired absence of both cervix and uterus; Z88.8 Allergy status to other drugs, medicaments and biological substances

== ENCOUNTER 2016-12-28 18:37 | Inpatient (IN) | payer MEDICARE, OTHER ==
[~2016-12-28] VITALS: Ht 152.4 cm; Wt 76.9 kg
--- NOTE | ~2016-12-28 | HC ---
[facility] [place] [address] CONSULTATION Name: DEENA ARRIAGA I Room #: 204-P [facility] IN M.R.#: [id number] Admission: 12/28/16 Attend Phys: Al Carey MD Discharge: 01/05/17 Date of : [birth year] Report #: [id number] THIS REPORT FOR: //name// CC: Gordo Jonas DATE OF SERVICE: 12/30/2016 REFERRING PROVIDER: Yennifer Villarreal MD REASON FOR CONSULTATION: Hypoxemic and hypercapnic respiratory failure. CHIEF COMPLAINT: Shortness of breath. HISTORY OF PRESENT ILLNESS: I was asked to emergently consult on this patient at 6:57 p.m. this evening. I have spent the last 45 minutes with the patient, evaluating, reviewing records, discussing with healthcare providers who were at the bedside as well as family. will be daughter who is power of district attorney. She is known to us from prior admissions, a pleasant 89-year-old woman with a history of a possible obstructive lung disease, who is a never smoker as well as underlying significant valvular heart disease and diastolic congestive heart failure. Last hospitalized here in October, presented to the emergency room 2 days ago with complaints of increasing shortness of breath and as the daughter noted she did not appear normal for the past few days. While in the emergency department, chest x-ray suggested some lower lobe atelectasis and/or infiltrates and bilateral pleural effusions. The patient had been receiving IV furosemide in the cardiology clinic to assist with management of her pulmonary edema and fluid retention. However, because of increasing symptoms, she presented to the emergency department and was felt to be in congestive heart failure. That is suggested by a proBNP of 2251 this evening. Subsequently, has been receiving diuresis without a significant response and has been negative about 1.6 liters since admission. The patient is not responsive at this time, earlier this evening had an acute event where she became more dyspneic. According to the daughter, this lasted maybe 90 minutes and did not improve with bronchodilators. The patient received lorazepam for sedation and then the patient became significantly unresponsive. The rapid response team and Code Blue was called with no CPR administered. The patient was noted to be severely hypercapnic with severe respiratory acidosis with a pH of 7.09, pCO2 of 117, and transferred to the ICU, is now on noninvasive positive pressure ventilation with BiPAP. She responds to deep pain and sternal rub, but mostly withdrawing appropriately and grimacing, not really interactive at this time. Not really responsive to her name at this time. ALLERGIES: FOSAMAX. [address] [address] CONSULTATION Name: DEENA ARRIAGA I Room #: 204-P [facility] IN .R.#: [id number] Admission: 12/28/16 Attend Phys: Al Carey MD Discharge: 01/05/17 Date of : [birth year] Report #: [id number] PAST MEDICAL HISTORY: 1. History of diastolic congestive heart failure. 2. History of valvular heart disease, apparently mitral regurgitation. 3. History of breast cancer, status post bilateral lumpectomies. 4. Hypertension. 5. Hyperlipidemia. 6. Moderate pulmonary hypertension. 7. History of atrial fibrillation. 8. History of endometrial cancer. 9. Osteoarthritis. SOCIAL HISTORY: Currently living in assisted living, is able to ambulate independently. No alcohol or drug use, never smoker. OUTPATIENT MEDICATIONS: Include DuoNebs, lovastatin, carvedilol, lisinopril, aspirin, Tylenol, citalopram, potassium chloride, Lasix, Mucinex, MiraLax. REVIEW OF SYSTEMS: Unobtainable due to her current neurologic status. FAMILY HISTORY: Noncontributory due to advanced age. PHYSICAL EXAMINATION: VITAL SIGNS: Afebrile, pulse 60s, respiratory rate in the 20s, blood pressure is 132/49. GENERAL: Elderly woman, poorly responsive on positive pressure ventilation with BiPAP mask. ENT: Unassessed due to BiPAP in place. NECK: Supple. No lymphadenopathy. Jugular venous pressure does not appear elevated. LUNGS: Markedly diminished in the bilateral bases, right greater than left. No wheezes or crackles noted. CARDIOVASCULAR: Heart was regular. No murmurs appreciated, but difficult to auscultate. ABDOMEN: Soft, nontender, no palpable masses. Bowel sounds were active. EXTREMITIES: Revealed some trace lower extremity edema. They are warm with 2+ pulses. INTEGUMENT: No identified rash. NEUROLOGIC: The patient, as described above with poor responsiveness, but did respond to deep stimulation. LABORATORY DATA: White blood cell count was 9000, hemoglobin 11, hematocrit 32, platelet count 306. Sodium this morning is 135, potassium 4.2, chloride 96, bicarbonate 35, BUN 16, creatinine 1.1, glucose 164. Arterial blood gas done on a nonrebreather mask revealed pH 7.09, pCO2 of 117, pO2 of 52, bicarbonate 35. Lactate was 3.07. Chest x-ray revealed significant right basilar opacity which is likely infiltrate and/or effusion, vascular pedical width measured by me at 5 [facility] [address] [place] [address] CONSULTATION Name: DEENA ARRIAGA I Room #: 204-P DIS IN M.Jj.#: [id number] Admission: 12/28/16 Attend Phys: Al Carey MD Discharge: 01/05/17 Date of : [birth year] Report #: [id number] cm and does not appear widened. Retrocardiac density also appreciated, possibly with air bronchogram, not noted on prior imaging on December 28, although bilateral pleural effusions suggested at that time. Findings worsened when compared to film from 2 days prior. Cultures are pending. IMPRESSION: 1. Acute on chronic hypoxemic and hypercapnic respiratory failure, likely multifactorial. Radiographic findings suggest pneumonia, likely healthcare associated with additional pleural effusions and likely diminished respiratory drive from lorazepam contributing. 2. Altered mental status likely secondary to above. Would consider acute cerebrovascular accident also in the differential, however, the patient moving all extremities at this time and did not feel stable to transport for imaging. 3. Diastolic congestive heart failure. The patient does not appear to be in significant congestive heart failure at this time. 4. Pleural effusion. Warrants further evaluation and thoracentesis. If there, would consider CT imaging of the chest to further evaluate, however, again feel the patient is unstable in the transport out of ICU at present, but likely will pursue when the patient appears more stable from a respiratory standpoint. 5. History of hypertension. SUGGEST: As outlined above. Continue with antibiotics meropenem and vancomycin noted to be ordered. Avoid sedating medications, continue with noninvasive positive pressure ventilation. Follow up arterial blood gas on current BiPAP settings of 16/8 and FiO2 50% is also pending. Continue with systemic steroids, although likely not contributing a tremendous amount to her therapy. Continue with the bronchodilators. We will follow in the ICU. Discussed with daughter at length. The patient is full code for now, may require mechanical ventilatory support to further manage. <ELECTRONICALLY SIGNED> By: Allen Martinez MD 01/06/17 1453 2030 1335 Allen Martinez MD /nt
--- NOTE | ~2016-12-28 | H ---
[facility] [place] [address] HISTORY AND PHYSICAL Name: DEENA ARRIAGA I Room #: 204-P ADM IN M.R.#: [id number] Admission: 12/28/16 Attend Phys: Gordo Dimas MD Discharge: Date of : [birth year] Report #: [id number] THIS REPORT FOR: //name// CC: Gordo Jonas DATE OF SERVICE: 12/28/2016 ATTENDING PHYSICIAN: Dr. Gordo Dimas. PRIMARY CARE PHYSICIAN: Juan David Jonas M.D. CHIEF COMPLAINT: Shortness of breath. HISTORY OF PRESENT ILLNESS: The patient is an 89-year-old female who was recently diagnosed with diastolic heart failure. She was being followed outpatient by Dr. Lester. She has been admitted multiple times just within the last few months for fluid overload. Initially, she was here in August and was hypoxic and required BiPAP. She received Lasix and improved. She had a CT which was negative for PE at that time, but did show some mediastinal lymphadenopathy. She was back in October of this year with bilateral pleural effusions and did receive thoracentesis on 2 different occasions. Her pleural fluid did not show any malignant cells. She does have a history of breast cancer. Her echocardiogram at that time showed a normal EF with grade 2 diastolic dysfunction, mild aortic regurgitation, moderate tricuspid regurgitation, and bjhocvbl-yq-ljwpbt mitral valve regurgitation. She has been coming into receive IV Lasix on an outpatient basis with cardiology. She just came in on Friday and received 80 mg of Lasix in the catheterization lab. She did not have much improvement in her symptoms. She has still been having increasing shortness of breath. She is very orthopneic. She says she cannot lie flat for even a small amount of time. She denies any cough or fevers, chills or congestion. She denies any chest pain. She has been wearing 2 liters of oxygen at home intermittently. She denies any changes in her weight or lower extremity edema. She says she watches her sodium intake. She says she has been taking her medications as prescribed. She came back in tonight to the ER complaining of shortness of breath and initially received 100 mg of IV Lasix and was diuresing some in the ER and was actually discharged from the ER and told to come back if her symptoms persisted. She came back shortly after saying she just was having too much trouble breathing; therefore, she has been admitted for further evaluation. She is currently resting comfortably and in no acute distress. PAST MEDICAL HISTORY: Breast cancer, hypertension, diastolic heart failure, hyperlipidemia, melanoma, moderate pulmonary hypertension, atrial fibrillation, severe mitral regurgitation, endometrial cancer, osteoarthritis. [address] [address] HISTORY AND PHYSICAL Name: DEENA ARRIAGA I Room #: 204-P [facility] IN M.R.#: [id number] Admission: 12/28/16 Attend Phys: Gordo Dimas MD Discharge: Date of : [birth year] Report #: [id number] PAST SURGICAL HISTORY: Bilateral lumpectomies, left ankle ORIF, total abdominal hysterectomy with BSO, left knee scope, ganglionectomy. ALLERGIES: FOSAMAX CAUSES TONGUE SWELLING. HOME MEDICATIONS: DuoNeb q. 4 hours, lovastatin 20 mg daily, carvedilol 6.25 mg b.i.d., lisinopril 5 mg daily, aspirin 325 mg daily, Tylenol p.r.n., citalopram 40 mg p.o. at bedtime, potassium chloride 20 mEq b.i.d., Lasix 40 mg b.i.d., Mucinex 600 mg b.i.d., MiraLax 17 grams daily. SOCIAL HISTORY: The patient denies any alcohol or drug use. She is a never smoker. She is a . She lives in an assisted living facility. She says she ambulates independently. FAMILY HISTORY: Significant for breast cancer. REVIEW OF SYSTEMS: Twelve-point review of systems was reviewed with the patient, otherwise negative unless stated in the HPI. PHYSICAL EXAMINATION: GENERAL: The patient is an alert female in no acute distress. VITAL SIGNS: Temperature is 36.6, heart rate , respirations 12, blood pressure is 115/52, oxygen 98% on 4 liters O2. HEENT: PERRLA. Sclerae are nonicteric. Oral mucosa is pink and moist. NECK: Supple, mild JVD noted. CARDIAC: Normal S1, S2. No murmurs, rubs or gallops. RESPIRATORY: Breath sounds are clear, bilateral upper lobes. She does have a few fine crackles in both bases, which is worse on the left side. Breathing is nonlabored. ABDOMEN: Round, soft, nontender, nondistended with positive bowel sounds. VASCULAR: 2+ bilateral lower extremity edema. Pedal pulses are 2+. NEUROLOGIC: The patient is alert and oriented x 3. Speech is clear. She is moving all extremities equally. No focal neuro deficits noted. LABORATORIES AND DIAGNOSTICS: WBC is 10.3, hemoglobin 10.1, platelets 286. Sodium 136, potassium 4.5, BUN 18, creatinine 1.1, glucose 140. BNP is 2035. Chest x-ray showed bibasilar opacities, consistent with pulmonary edema or multifocal pneumonia with small bilateral pleural effusions. ASSESSMENT AND PLAN: 1. Acute on chronic diastolic heart failure: The patient has been given further IV Lasix in the ER and has been diuresing somewhat. She is hypoxic, which is a slight change from her baseline. We will continue IV Lasix for 2 more doses. We will consult cardiology for any further recommendations. Hold off on a repeat echo since this was just done in October of this year and resume home meds including carvedilol and lisinopril. Continue with low-sodium diet [facility] [address] [place] [address] HISTORY AND PHYSICAL Name: DEENA ARRIAGA Room #: 204-P [facility] IN ..#: [id number] Admission: 12/28/16 Attend Phys: Gordo Dimas MD Discharge: Date of : [birth year] Report #: [id number] and daily weights with fluid restriction. 2. Hypertension: Blood pressure is stable. Resume home meds and monitor. 3. Moderate pulmonary hypertension and severe mitral regurgitation. This may also be contributing to her shortness of air symptoms. We will continue with diuresis. 4. Hyperlipidemia: Continue statin therapy. 5. Deep venous thrombosis prophylaxis: We will add Lovenox. We will continue to follow the patient closely throughout the hospitalization and make changes based on clinical status. <ELECTRONICALLY SIGNED> By: LADONNA Dean 01/02/17 0109 0432 0543 Manisha Rock, LADONNA /nt
--- NOTE | ~2016-12-28 | HC ---
[facility] [place] [address] CONSULTATION Name: DEENA ARRIAGA I Room #: 447-P ADM IN M.R.#: [id number] Admission: 12/28/16 Attend Phys: Gordo Dimas MD Discharge: Date of : [birth year] Report #: [id number] THIS REPORT FOR: //name// CC: Gordo Jonas DATE OF SERVICE: 12/29/2016 INDICATION: Dyspnea. HISTORY OF PRESENT ILLNESS: This is an 89-year-old female presenting with recurrent dyspnea. She has had multiple admissions for congestive heart failure attributed to diastolic dysfunction. At the assisted living facility, she was noted to be more dyspneic and was brought to the ER for an evaluation. The patient denies any episodes of angina, fever, nausea or diarrhea. She received Lasix in the ER, with an improvement in her symptoms. The last echo from 10/2016 reveals normal LV systolic function with moderately severe mitral regurgitation. The patient admits to taking her medications. PAST MEDICAL HISTORY: Multiple congestive heart failure admissions attributed to diastolic dysfunction. Mildly severe mitral regurgitation, hypertension, hypercholesterolemia, PVCs, general debility. CURRENT MEDICATIONS: Include lovastatin 20 mg daily, Coreg 6.25 mg twice a day, lisinopril 5 mg daily, aspirin once a day, Lasix 40 mg daily, DuoNeb inhaler. SOCIAL HISTORY: Negative for tobacco use, currently living in an assisted living facility. FAMILY HISTORY: Negative for premature CAD. REVIEW OF SYSTEMS: A full 10-point review of systems is performed. Only the pertinent positives and negatives are described in the HPI. PHYSICAL EXAMINATION: VITAL SIGNS: Blood pressure is 138/70, heart rate is 70 beats per minute. GENERAL APPEARANCE: This is an elderly appearing female in no acute respiratory distress. HEAD AND EYES: Normocephalic. Sclerae are anicteric. ENT: Oral mucosa moist. NECK: Supple. LUNGS: Bibasilar crackles. CARDIAC: S1, S2 positive. ABDOMEN: Soft, nontender. EXTREMITIES: No major joint deformities. Positive lower extremity edema. [facility] [address] [place] [address] CONSULTATION Name: CORINADEENA Room #: 447-P ADM IN M.R.#: [id number] Admission: 12/28/16 Attend Phys: Gordo Dimas MD Discharge: Date of : [birth year] Report #: [id number] Chest x-ray reveals bilateral pulmonary opacities consistent with pulmonary edema with small bilateral effusions. LABORATORY VALUES: White count is 10.3, hemoglobin is 10.1. Sodium is 136, creatinine is 1.1. ProBNP is 2035. ASSESSMENT AND PLAN: 1. Congestive heart failure/diastolic dysfunction, the etiology for her multiple admissions is unclear. We will speak with Dr. Lester, who is her primary radiator repairer. For now, the plan is to continue with IV diuresis. Once she is stabilized, consider change in the diuretic to torsemide. 2. Hypertension. The blood pressure is stable on current regimen. Continue with beta amisha and JOSELINE inhibitor. 3. Hypercholesterolemia, continue with lovastatin. 4. Edema, should improve with diuresis. Thank you for allowing me to participate in the care of your patient. <ELECTRONICALLY SIGNED> By: Sadi Rojas MD 12/30/16 0902 1048 [id number] Sadi Rojas MD /nt
--- NOTE | ~2016-12-28 | CNG ---
[facility] [place] [address] CYTO-NONGYN REPORT PROCEDURE Name: SHAWANDA ARRIAGA I Room #: 248-P ADM IN M.R.#: [id number] Admission: 12/28/16 Date of : [birth year] Discharge: Report #: [id number] Path Case #: [id number] CYTOPATHOLOGY REPORT COLLECTION DATE: 12/31/2016 RECEIVED DATE: 12/31/2016 SUBMITTING PHYS: Dr. Wing Caro OTHER PHYS: Dr. Juan David Jonas CLINICAL HISTORY: Short of breath, feeling sick. SPECIMEN(S) RECEIVED: A.Pleural fluid * * * * * * * * * * * * FINAL DIAGNOSIS: A. Pleural fluid: - No malignant epithelial cells identified. Mesothelial cells and inflammation identified. PATHOLOGIST: Shirley Hummel M.D. REPORT ELECTRONICALLY SIGNED BY: Shirley Hummel M.D. DATE/TIME: 01/01/2017 16:42 * * * * * * * * * * * * GROSS PATHOLOGY: A. Pleural fluid: The specimen is submitted unfixed, labeled "Shawanda Arriaga I". Received by the Cytology Department is 20 mL of cloudy yellow fluid. One ThinPrep slide and a cell block were prepared. (clt 12.31.2016) SHIPWRIGHT SUPERVISOR(S): SERGEI Be(ASCP) INITIAL CPT CODE(S): A; 38618, 70051 Professional services performed by [facility] at [facility] [address] [place] [address] Technical services performed by [facility] at [address] [place] [address]., [address], [place] [address]. [facility] [address] [place] [address], [address] [place] [address] PHONE: [phone] [facility] [address] [place] [address] CYTO-NONGYN REPORT PROCEDURE Name: SHAWANDA ARRIAGA I Room #: 248-P ADM IN M.R.#: [id number] Admission: 12/28/16 Date of : [birth year] Discharge: Report #: [id number] Path Case #: [id number] DIRECTOR: Cliff Mosse M.D. * * * END OF REPORT * * *
--- NOTE | ~2016-12-28 | CNG ---
[facility] [place] [address] CYTO-NONGYN REPORT PROCEDURE Name: SHAWANDA ARRIAGA I Room #: 204-P ADM IN M.R.#: [id number] Admission: 12/28/16 Date of : [birth year] Discharge: Report #: [id number] Path Case #: [id number] CYTOPATHOLOGY REPORT COLLECTION DATE: 01/01/2017 RECEIVED DATE: 01/01/2017 SUBMITTING PHYS: Dr. Wing Caro OTHER PHYS: Dr. Juan David Jonas CLINICAL HISTORY: Short of breath; CHF; weakness; exertional dyspnea SPECIMEN(S) RECEIVED: A.Pleural fluid * * * * * * * * * * * * FINAL DIAGNOSIS: A. Pleural fluid: - No malignant cells identified. Paucicellular specimen with rare mesothelial cells and predominantly chronic inflammatory cells are identified in a proteinaceous background. PATHOLOGIST: Kathya Katz M.D. REPORT ELECTRONICALLY SIGNED BY: Kathya Katz M.D. DATE/TIME: 01/02/2017 12:52 * * * * * * * * * * * * GROSS PATHOLOGY: A. Pleural fluid: The specimen is submitted unfixed, labeled "Shawna Arriagastaci Diaz". Received by the Cytology Department is 15 mL of cloudy orange fluid. One ThinPrep slide and a cell block were prepared. (clt 01.01.2017) CREATIVE SERVICES PRODUCER(S): SERGEI Austin(ASCP), IAC INITIAL CPT CODE(S): A; 81029, 93515 Professional services performed by [facility] at [facility] [address], [place] [address] Technical services performed by [facility] at [address] [place] [address]., [address], [place] [address]. [facility] [address] [place] [address], [address] [place] [address] [facility] [address] [place] [address] CYTO-NONGYN REPORT PROCEDURE Name: CORINASHAWANDA Diaz Room #: 204-P ADM IN M.R.#: [id number] Admission: 12/28/16 Date of : [birth year] Discharge: Report #: [id number] Path Case #: [id number] PHONE: [phone] DIRECTOR: Cliff Moses M.D. * * * END OF REPORT * * *
--- NOTE | ~2016-12-28 | EKG ---
[address] [place] [address] ELECTROCARDIOGRAM REPORT Name: CORINADEENA I Room #: 248- ADM IN M.R.#: [id number] Admission: 12/28/16 Attend Phys: Gordo Dimas MD Discharge: Date of : [birth year] Report #: [id number] THIS REPORT FOR: //name// [facility] Test Date: 2016-12-30 Test Time: 18:48:17 Pat Name: DEENA ARRIAGA Department: Room: 248 P Gender: F Domestic Travel Consultant: Randall CABRERA : 1925 Requested By: Yennifer Villarreal Order Number: [id number] MD: Edin Damon Measurements Intervals [place] Rate: 69 P: 76 MA: 181 QRS: 60 QRSD: 89 T: 4 QT: 408 QTc: 437 Interpretive Statements Sinus rhythm RSR' in V1 or V2, right VCD or RVH Compared to ECG 11/02/2016 04:53:44 RSR' in V1 or V2 now present Atrial premature complex(es) no longer present Electronically Signed On 12-31-2016 7:36:34 CDT by Edin Damon [email or web address] <ELECTRONICALLY SIGNED> By: Edin Damon MD, [facility] 12/31/16 0736 1848 1848 Edin Damon MD, [facility] /EPI
[2016-12-28 18:47] VITALS: BP 115/52
[2016-12-28] MEDS ORDERED: MIRALAX255 GM PO (19:38)
[2016-12-28] MEDS ORDERED: TYLENOL325 MG PO (19:41)
[2016-12-28 20:41] VITALS: BP 126/86
[2016-12-28 21:03] VITALS: BP 125/50
[2016-12-29 04:22] VITALS: BP 123/41
[2016-12-29 08:08] VITALS: BP 131/37
[2016-12-29 16:08] VITALS: BP 101/39
[2016-12-29 20:30] VITALS: BP 136/49
[2016-12-29 20:35] VITALS: BP 131/53
[2016-12-30] VITALS (16 sets, daily range): BP systolic 93–198; BP diastolic 36–72
[2016-12-30 10:14] LABS: HEMATOCRIT 32.2 % (37.0-47.0); HEMOGLOBIN 10.7 gm/dL (12.0-15.0); MCH 30.6 pg (26.0-34.0); MCHC 33.2 g/dL (28.0-37.0); RBC 3.5 mil/uL (4.20-5.00); RDW 14.8 % (10.5-14.5); WBC 8.9 thou/uL (4.0-11.0)
[2016-12-30 10:18] LABS: CALCIUM 8.6 mg/dL (8.5-10.1); CREATININE 1.1 mg/dL (0.6-1.0); MAGNESIUM 1.9 mg/dL (1.8-2.4); POTASSIUM 4.2 mmol/L (3.5-5.1)
[2016-12-30 18:58] LABS: ABG SAMPLE TYPE ARTERIAL; BE(vivo) 1.5 mmol/L (-2 to +3); LACTATE 3.07 mmol/L (0.5-2.0); O2(CT) 13.8 mL/dL (15.0-23.0); O2Hb 71.3 % (92.0-98.0); PCO2 116.7 mmHg (35.0-45.0); PO2 52.1 mmHg (80.0-100.0); STICK SITE R.BRACHIAL; pH 7.095 (7.360-7.450); sO2 70.6 % (92.0-98.0); tCO2 38.6 mmol/L (24.0-30.0)
[2016-12-30 20:22] LABS: URINE BILIRUBIN NEGATIVE (Negative); URINE BLOOD NEGATIVE (Negative); URINE COLOR YELLOW; URINE GLUCOSE-RANDOM* NEGATIVE (Negative); URINE KETONES NEGATIVE (Negative); URINE LEUKOCYTES-REFLEX NEGATIVE (Negative); URINE PROTEIN (DIPSTICK) TRACE (Negative); URINE SPECIFIC GRAVITY >= 1.030 (1.003-1.035); URINE UROBILINOGEN 0.2 E.U./dl (0.2-1.0)
[2016-12-30 20:33] LABS: ABG SAMPLE TYPE ARTERIAL; BE(vivo) 4.8 mmol/L (-2 to +3); FIO2 50 %; HCO3 32.5 mmol/L (22.0-26.0); LACTATE 1.37 mmol/L (0.5-2.0); O2(CT) 16.2 mL/dL (15.0-23.0); O2Hb 93.4 % (92.0-98.0); PCO2 64.1 mmHg (35.0-45.0); Pressure Support 16 cm H20; STICK SITE L.BRACHIAL; pH 7.323 (7.360-7.450); sO2 93.8 % (92.0-98.0); tCO2 34.5 mmol/L (24.0-30.0)
[2016-12-31] VITALS (67 sets, daily range): BP systolic 79–143; BP diastolic 31–115
[2016-12-31 04:12] LABS: HEMATOCRIT 32.4 % (37.0-47.0); HEMOGLOBIN 10.9 gm/dL (12.0-15.0); MCH 30.7 pg (26.0-34.0); MCHC 33.7 g/dL (28.0-37.0); MCV 91.3 fL (80.0-100.0); RBC 3.55 mil/uL (4.20-5.00); RDW 14.7 % (10.5-14.5); WBC 9.1 thou/uL (4.0-11.0)
[2016-12-31 04:36] LABS: ALBUMIN 3.1 g/dL (3.4-5.0); CALCIUM 8.7 mg/dL (8.5-10.1); MAGNESIUM 2.1 mg/dL (1.8-2.4); POTASSIUM 4.5 mmol/L (3.5-5.1); TOTAL BILIRUBIN 0.4 mg/dL (<0.1-1.0)
[2016-12-31 05:27] LABS: ABG SAMPLE TYPE ARTERIAL; BE(vivo) 6.1 mmol/L (-2 to +3); LACTATE 1.03 mmol/L (0.5-2.0); O2(CT) 15.4 mL/dL (15.0-23.0); O2Hb 94.3 % (92.0-98.0); PCO2 52.6 mmHg (35.0-45.0); PO2 75.9 mmHg (80.0-100.0); pH 7.402 (7.360-7.450); tCO2 33.6 mmol/L (24.0-30.0)
[2016-12-31 05:28] LABS: Pressure Support 16 cm H20; STICK SITE L.RADIAL
[2016-12-31 10:18] LABS: PROTIME 10.7 Seconds (9.3-11.4)
[2016-12-31 15:01] LABS: BF NUCLEATED CELLS 229; BF RBC 964
[2016-12-31 15:03] LABS: MANUAL DIFF YES
[2016-12-31 15:07] LABS: CLARITY HAZY; COLOR YELLOW; TOTAL VOLUME 60 mL
[2016-12-31 15:52] LABS: BF NEUTROPHILS 4
[2017-01-01] VITALS (36 sets, daily range): BP systolic 105–129; BP diastolic 31–110
[2017-01-01 06:12] LABS: URINE BILIRUBIN NEGATIVE (Negative); URINE BLOOD 3+ (Negative); URINE COLOR RED; URINE GLUCOSE-RANDOM* NEGATIVE (Negative); URINE KETONES 1+ (Negative); URINE LEUKOCYTES-REFLEX 2+ (Negative); URINE PROTEIN (DIPSTICK) 3+ (Negative)
[2017-01-01 06:21] LABS: CASTS None Seen /LPF (None Seen); CRYSTALS None Seen /LPF (None Seen); SQUAMOUS None Seen /LPF (0-3)
[2017-01-01 06:27] LABS: AMORPHOUS URATES Many /LPF (None Seen)
[2017-01-01 08:30] LABS: HEMATOCRIT 31.8 % (37.0-47.0); HEMOGLOBIN 10.5 gm/dL (12.0-15.0); MCH 30.2 pg (26.0-34.0); MCHC 33.2 g/dL (28.0-37.0); MCV 90.9 fL (80.0-100.0); RBC 3.5 mil/uL (4.20-5.00); RDW 14.7 % (10.5-14.5); WBC 15.4 thou/uL (4.0-11.0)
[2017-01-01 08:45] LABS: CALCIUM 8.6 mg/dL (8.5-10.1); CREATININE 1.3 mg/dL (0.6-1.0); POTASSIUM 3.7 mmol/L (3.5-5.1)
[2017-01-01 12:20] LABS: BF NUCLEATED CELLS 218; BF RBC 12499
[2017-01-01 12:22] LABS: CLARITY CLOUDY; COLOR AMBER
[2017-01-01 12:23] LABS: MANUAL DIFF YES; TOTAL VOLUME 60 mL
[2017-01-01 13:24] LABS: BF NEUTROPHILS 6
[2017-01-01 15:07] LABS: BODY FLUID ALBUMIN 1.9 g/dL (()); BODY FLUID AMYLASE 23 U/L (()); BODY FLUID GLUCOSE 148 mg/dL (()); BODY FLUID LDH 79 IU/L (()); BODY FLUID PROTEIN 2.8 g/dL (())
[2017-01-02 03:48] VITALS: BP 108/51
[2017-01-02 03:54] LABS: HEMATOCRIT 31.1 % (37.0-47.0); HEMOGLOBIN 10.3 gm/dL (12.0-15.0); MCH 30.4 pg (26.0-34.0); MCHC 33.2 g/dL (28.0-37.0); MCV 91.6 fL (80.0-100.0); PLATELET COUNT 294 thou/uL (150-400); RBC 3.39 mil/uL (4.20-5.00); RDW 14.7 % (10.5-14.5); WBC 13.5 thou/uL (4.0-11.0)
[2017-01-02 03:58] LABS: MANUAL DIFF YES
[2017-01-02 04:10] LABS: CREATININE 1.2 mg/dL (0.6-1.0); POTASSIUM 3.6 mmol/L (3.5-5.1)
[2017-01-02 04:37] LABS: ABSOLUTE NEUTROPHILS 11.9 thou/uL (1.4-8.2); TOTAL CELL COUNT 100
[2017-01-02 07:25] VITALS: BP 127/52
[2017-01-02 08:38] LABS: BF MACROPHAGE 21
[2017-01-02 10:34] VITALS: BP 127/52
[2017-01-02 11:38] VITALS: BP 118/49
[2017-01-02 15:57] VITALS: BP 126/46
[2017-01-02 20:16] VITALS: BP 125/42
[2017-01-03 03:26] LABS: HEMATOCRIT 31.9 % (37.0-47.0); HEMOGLOBIN 10.6 gm/dL (12.0-15.0); MCH 30.4 pg (26.0-34.0); MCHC 33.2 g/dL (28.0-37.0); MCV 91.4 fL (80.0-100.0); PLATELET COUNT 276 thou/uL (150-400); RBC 3.49 mil/uL (4.20-5.00); RDW 14.6 % (10.5-14.5); WBC 11.3 thou/uL (4.0-11.0)
[2017-01-03 03:33] LABS: MANUAL DIFF YES
[2017-01-03 03:35] LABS: CALCIUM 8.1 mg/dL (8.5-10.1); CREATININE 1.2 mg/dL (0.6-1.0); POTASSIUM 3.5 mmol/L (3.5-5.1)
[2017-01-03 04:00] LABS: ABSOLUTE NEUTROPHILS 10.4 thou/uL (1.4-8.2); TOTAL CELL COUNT 100
[2017-01-03 04:30] VITALS: BP 119/50
[2017-01-03 07:25] VITALS: BP 122/61
[2017-01-03 08:39] LABS: BF MACROPHAGE 17
[2017-01-03 11:30] VITALS: BP 133/41
[2017-01-03 14:09] LABS: BODY FLUID ALBUMIN 1.8 g/dL (()); BODY FLUID AMYLASE 19 U/L (()); BODY FLUID GLUCOSE 166 mg/dL (()); BODY FLUID LDH 61 IU/L (()); BODY FLUID PROTEIN 2.7 g/dL (())
[2017-01-03 16:22] VITALS: BP 126/55
[2017-01-03 20:18] VITALS: BP 123/53
[2017-01-04 03:11] LABS: HEMATOCRIT 31.2 % (37.0-47.0); HEMOGLOBIN 10.5 gm/dL (12.0-15.0); MCH 30.8 pg (26.0-34.0); MCHC 33.8 g/dL (28.0-37.0); MCV 91.1 fL (80.0-100.0); PLATELET COUNT 273 thou/uL (150-400); RBC 3.42 mil/uL (4.20-5.00); RDW 14.3 % (10.5-14.5); WBC 12.3 thou/uL (4.0-11.0)
[2017-01-04 03:12] LABS: MANUAL DIFF YES
[2017-01-04 03:24] LABS: CALCIUM 7.9 mg/dL (8.5-10.1); CREATININE 1.1 mg/dL (0.6-1.0); MAGNESIUM 2.1 mg/dL (1.8-2.4); POTASSIUM 3.4 mmol/L (3.5-5.1)
[2017-01-04 04:47] LABS: ABSOLUTE NEUTROPHILS 10.6 thou/uL (1.4-8.2); TOTAL CELL COUNT 100
[2017-01-04 05:00] VITALS: BP 130/69
[2017-01-04 08:00] VITALS: BP 121/52
[2017-01-04 12:00] VITALS: BP 125/54
[2017-01-04 16:09] VITALS: BP 126/47
[2017-01-04 19:58] VITALS: BP 113/38
[2017-01-04 20:12] VITALS: BP 130/58
[2017-01-05 04:00] VITALS: BP 116/46
[2017-01-05 08:00] VITALS: BP 106/53
[2017-01-05] MEDS ORDERED: AUGMENTIN 500-1 EACH PO (09:51)
[2017-01-05] MEDS ORDERED: TORSEMIDE20 MG PO (09:52)
[2017-01-05] MEDS ORDERED: PREDNISONE 10 M10 MG PO (09:54)
[2017-01-05 12:00] VITALS: BP 149/76
== END 2017-01-05 12:00 | DRG 177 ==
LOC: ER 18:37 → 4S 19:44 → 2N 19:44 → EROBS 19:44 → 4S 20:43 → ICU 12-30 19:55 → 2N 01-01 17:18
PROVIDERS: Family Medicine; Internal Medicine Endocrinology, Diabetes & Metabolism; Internal Medicine Pulmonary Disease; Nurse Practitioner; Nurse Practitioner Gerontology
PROC: 0W993ZZ Drainage of Right Pleural Cavity, Percutaneous Approach (ICD-10-PCS; 2016-12-31)
PROC: 5A09357 Assistance with Respiratory Ventilation, Less than 24 Consecutive Hours, Continuous Positive Airway Pressure (ICD-10-PCS; 2016-12-31)
PROC: 0W9B3ZZ Drainage of Left Pleural Cavity, Percutaneous Approach (ICD-10-PCS; principal; 2017-01-01)
DX: J69.0 Pneumonitis due to inhalation of food and vomit (principal); I50.33 Acute on chronic diastolic (congestive) heart failure; J96.21 Acute and chronic respiratory failure with hypoxia; J96.22 Acute and chronic respiratory failure with hypercapnia; J90 Pleural effusion, not elsewhere classified; J44.0 Chronic obstructive pulmonary disease with (acute) lower respiratory infection; J15.6 Pneumonia due to other Gram-negative bacteria; I11.0 Hypertensive heart disease with heart failure; R31.9 Hematuria, unspecified; I48.0 Paroxysmal atrial fibrillation; I34.0 Nonrheumatic mitral (valve) insufficiency; E78.00 Pure hypercholesterolemia, unspecified; E78.5 Hyperlipidemia, unspecified; I27.2 Other secondary pulmonary hypertension; M19.90 Unspecified osteoarthritis, unspecified site; Z90.710 Acquired absence of both cervix and uterus; Z88.8 Allergy status to other drugs, medicaments and biological substances; Z85.3 Personal history of malignant neoplasm of breast; Z99.81 Dependence on supplemental oxygen; Z85.42 Personal history of malignant neoplasm of other parts of uterus; Z79.899 Other long term (current) drug therapy; Z79.82 Long term (current) use of aspirin; Z80.3 Family history of malignant neoplasm of breast; Z91.81 History of falling
CPT/HCPCS: 10078; 10081; 10100

== ENCOUNTER → 2017-01-28 | Outpatient (CLI) | payer MEDICARE, OTHER ==
[~2017-01-28] MED LIST changes: +PREDNISONE 10 M10 MG PO; +TORSEMIDE20 MG PO
== END ==
LOC: RAD 17:20
DX: J90 Pleural effusion, not elsewhere classified (principal); J98.11 Atelectasis; R06.00 Dyspnea, unspecified

== ENCOUNTER → 2017-01-31 | Outpatient (CLI) | payer BC ==
--- NOTE | ~2017-01-31 | CNG ---
[facility] [place] [address] CYTO-NONGYN REPORT PROCEDURE Name: CORINASHAAWNDA Diaz Room #: REG ROBERTO CARLOS Pereira.Jj.#: [id number] Admission: 01/31/17 Date of : [birth year] Discharge: Report #: [id number] Path Case #: [id number] CYTOPATHOLOGY REPORT COLLECTION DATE: 01/31/2017 RECEIVED DATE: 01/31/2017 SUBMITTING PHYS: Dr. Allen Martinez OTHER PHYS: CLINICAL HISTORY: Left pleural fluid. SPECIMEN(S) RECEIVED: A.Pleural fluid, Left * * * * * * * * * * * * FINAL DIAGNOSIS: A. Left Pleural fluid: - No malignant cells identified. -Few mesothelial cells and scattered inflammatory cells identified in a proteinaceous background. PATHOLOGIST: Shirley Hummel M.D. REPORT ELECTRONICALLY SIGNED BY: Shirley Hummel M.D. DATE/TIME: 02/03/2017 16:20 * * * * * * * * * * * * GROSS PATHOLOGY: A. Pleural fluid, Left: The specimen is submitted unfixed, labeled "Shawanda Arriaga I". Received by the Cytology Department is 10 mL of dark yellow fluid. One ThinPrep slide and a cell block were prepared. (clt 01.31.2017) NET DEVELOPER WITH WCF(S): SERGEI Day([facility]) INITIAL CPT CODE(S): A; 26099, 79652 Professional services performed by [facility] at [facility] [address], [place] [address] Technical services performed by [facility] at [address] [place] [address]., [address], [place] [address]. [facility] [address] [place] [address], [facility] [address] [place] [address] [facility] [address] [place] [address] CYTO-NONGYN REPORT PROCEDURE Name: SHAWANDA ARRIAGA I Room #: MIKKI Bergman#: [id number] Admission: 01/31/17 Date of : [birth year] Discharge: Report #: [id number] Path Case #: [id number] PHONE: [phone] DIRECTOR: Cliff Moses M.D. * * * END OF REPORT * * *
[2017-01-31 07:54] LABS: HEMATOCRIT 33.3 % (37.0-47.0); HEMOGLOBIN 11.1 gm/dL (12.0-15.0); MCH 31.1 pg (26.0-34.0); MCHC 33.5 g/dL (28.0-37.0); PLATELET COUNT 339 thou/uL (150-400); RBC 3.58 mil/uL (4.20-5.00); RDW 13.7 % (10.5-14.5); WBC 8.4 thou/uL (4.0-11.0)
[2017-01-31 07:55] LABS: MANUAL DIFF YES
[2017-01-31 08:14] LABS: PROTIME 10.2 Seconds (9.3-11.4)
[2017-01-31 08:20] LABS: TOTAL CELL COUNT 100
[2017-01-31 08:21] LABS: ANISOCYTOSIS SLIGHT
[2017-01-31 09:49] LABS: BF NUCLEATED CELLS 428; BF RBC 6531
[2017-01-31 10:33] LABS: CLARITY CLOUDY; COLOR AMBER; MANUAL DIFF YES; TOTAL VOLUME 60 mL
[2017-01-31 11:27] LABS: BF NEUTROPHILS 4
[2017-02-01 09:08] LABS: BODY FLUID ALBUMIN 1.8 g/dL (()); BODY FLUID AMYLASE 21 U/L (()); BODY FLUID GLUCOSE 104 mg/dL (()); BODY FLUID LDH 66 IU/L (()); BODY FLUID PROTEIN 2.8 g/dL (())
== END | disposition home or self-care (01) ==
LOC: ULTRA 07:09
PROVIDERS: Internal Medicine Pulmonary Disease
DX: J90 Pleural effusion, not elsewhere classified (principal); J44.1 Chronic obstructive pulmonary disease with (acute) exacerbation; I50.9 Heart failure, unspecified; Z79.82 Long term (current) use of aspirin; Z79.899 Other long term (current) drug therapy; Z98.890 Other specified postprocedural states

== ENCOUNTER 2017-03-06 11:05 | Inpatient (IN) | payer MEDICARE ==
[~2017-03-06] VITALS: Ht 154.9 cm; Wt 74.8 kg
--- NOTE | ~2017-03-06 | EKG ---
[address] [place] [address] ELECTROCARDIOGRAM REPORT Name: DEENA ARRIAGA I Room #: 441-P ADM IN M.R.#: [id number] Admission: 03/06/17 Attend Phys: Lenin Herman DO Discharge: Date of : [birth year] Report #: [id number] THIS REPORT FOR: //name// [facility] ED Test Date: 2017-03-06 Test Time: 11:12:09 Pat Name: DEENA ARRIAGA Department: Room: [facility] Gender: F Poultry Feed Supervisor: [id number] : 1925 Requested By: Kristina Esposito Order Number: [id number] MD: Edin Damon Measurements Intervals [place] Rate: 68 P: 53 ME: 193 QRS: 27 QRSD: 99 T: -9 QT: 450 QTc: 479 Interpretive Statements Sinus rhythm Ventricular bigeminy Nonspecific T abnormalities, anterior leads Compared to ECG 02/13/2017 17:07:08 Ventricular premature complex(es) now present Atrial premature complex(es) no longer present Electronically Signed On 03-06-2017 17:38:18 CDT by Edin Damon [email or web address] <ELECTRONICALLY SIGNED> By: Edin Damon MD, [facility] 03/06/17 1738 1112 1112 Edin Damon MD, [facility] /EPI
--- NOTE | ~2017-03-06 | CNG ---
[facility] [place] [address] CYTO-NONGYN REPORT PROCEDURE Name: SHAWANDA ARRIAGA I Room #: 441-P DIS IN M.R.#: [id number] Admission: 03/06/17 Date of : [birth year] Discharge: 03/11/17 Report #: [id number] Path Case #: [id number] CYTOPATHOLOGY REPORT COLLECTION DATE: 03/08/2017 RECEIVED DATE: 03/10/2017 SUBMITTING PHYS: Dr. Marci Prasad OTHER PHYS: Dr. Boris Jonas CLINICAL HISTORY: Acute CHF, hypoxia, pleural effusion. SPECIMEN(S) RECEIVED: A.Pleural fluid * * * * * * * * * * * * FINAL DIAGNOSIS: A. Pleural fluid: - No malignant epithelial cells identified. - Rare mesothelial cells and chronic inflammatory cells present in a background of debris. PATHOLOGIST: Shirley Hummel M.D. REPORT ELECTRONICALLY SIGNED BY: Shirley Hummel M.D. DATE/TIME: 03/11/2017 15:55 * * * * * * * * * * * * GROSS PATHOLOGY: A. Pleural fluid: The specimen is submitted unfixed, labeled "Shawanda Arriaga I". Received by the Cytology Department is 30 mL of cloudy dark yellow fluid. One ThinPrep slide and a cell block were prepared. (clt 03.10.2017) FINISHING TUNNEL OPERATOR(S): SERGEI Bridges(ASCP) INITIAL CPT CODE(S): A; 39546, 40943 Professional services performed by [facility] at [facility] [address], [place] [address] Technical services performed by [facility] at [address] [place] [address]., [address], [place] [address]. [facility] [address] [place] [address], [address] [facility] [address] [place] [address] CYTO-NONGYN REPORT PROCEDURE Name: CORINASHAWANDA I Room #: 441-P DIS IN M.R.#: [id number] Admission: 03/06/17 Date of : [birth year] Discharge: 03/11/17 Report #: [id number] Path Case #: [id number] [place] [id number] PHONE: [phone] DIRECTOR: Cliff Moses M.D. * * * END OF REPORT * * *
[~2017-03-06 11:05] MED LIST changes: -DEMADEX20 MG PO
[2017-03-06 11:06] VITALS: BP 123/50
[2017-03-06] MEDS ORDERED: DEMADEX20 MG PO (11:14)
[2017-03-06 11:44] LABS: HEMATOCRIT 31.5 % (37.0-47.0); HEMOGLOBIN 10.4 gm/dL (12.0-15.0); MCH 30.3 pg (26.0-34.0); MCHC 33.2 g/dL (28.0-37.0); MCV 91.3 fL (80.0-100.0); PLATELET COUNT 326 thou/uL (150-400); RBC 3.45 mil/uL (4.20-5.00); RDW 13.2 % (10.5-14.5); WBC 12.7 thou/uL (4.0-11.0)
[2017-03-06 11:52] LABS: MANUAL DIFF YES
[2017-03-06 11:56] LABS: ANION GAP 5 mmol/L (7-16); BUN 31 mg/dL (7-18); CALCIUM 8.9 mg/dL (8.5-10.1); CHLORIDE 103 mmol/L (98-107); CO2 36 mmol/L (21-32); CREATININE 1.3 mg/dL (0.6-1.0); GLUCOSE 92 mg/dL (74-106); POTASSIUM 3.8 mmol/L (3.5-5.1); SODIUM 144 mmol/L (136-145)
[2017-03-06 12:08] LABS: NT-PRO BRAIN NAT PEPTIDE 7803 pg/mL (<300); TROPONIN-I < 0.04 ng/mL (<0.04-0.07)
[2017-03-06 12:43] LABS: ABSOLUTE NEUTROPHILS 10.5 thou/uL (1.4-8.2); TOTAL CELL COUNT 100
[2017-03-06 13:49] LABS: URINE BILIRUBIN NEGATIVE (Negative); URINE BLOOD NEGATIVE (Negative); URINE COLOR YELLOW; URINE GLUCOSE-RANDOM* NEGATIVE (Negative); URINE KETONES NEGATIVE (Negative); URINE LEUKOCYTES-REFLEX NEGATIVE (Negative); URINE PROTEIN (DIPSTICK) NEGATIVE (Negative); URINE SPECIFIC GRAVITY 1.015 (1.003-1.035); URINE UROBILINOGEN 0.2 E.U./dl (0.2-1.0)
[2017-03-06 13:50] VITALS: BP 141/68
[2017-03-06 14:20] VITALS: BP 142/67
[2017-03-06 16:11] VITALS: BP 119/54
[2017-03-06 20:00] VITALS: BP 111/42
[2017-03-07 03:46] LABS: HEMATOCRIT 28.5 % (37.0-47.0); HEMOGLOBIN 9.3 gm/dL (12.0-15.0); MCH 29.7 pg (26.0-34.0); MCHC 32.7 g/dL (28.0-37.0); MCV 91.1 fL (80.0-100.0); PLATELET COUNT 289 thou/uL (150-400); RBC 3.13 mil/uL (4.20-5.00); RDW 12.9 % (10.5-14.5); WBC 11.3 thou/uL (4.0-11.0)
[2017-03-07 03:58] LABS: CALCIUM 8.4 mg/dL (8.5-10.1); CREATININE 1.2 mg/dL (0.6-1.0); MAGNESIUM 1.7 mg/dL (1.8-2.4); POTASSIUM 3.7 mmol/L (3.5-5.1)
[2017-03-07 04:06] LABS: MANUAL DIFF YES
[2017-03-07 04:25] VITALS: BP 123/458
[2017-03-07 07:20] VITALS: BP 135/51
[2017-03-07 07:25] LABS: ABSOLUTE NEUTROPHILS 9.4 thou/uL (1.4-8.2); TOTAL CELL COUNT 100
[2017-03-07 07:26] LABS: ANISOCYTOSIS SLIGHT
[2017-03-07 14:50] VITALS: BP 135/71
[2017-03-07 15:48] VITALS: BP 134/63
[2017-03-07 20:29] VITALS: BP 118/43
[2017-03-08 05:03] VITALS: BP 110/48
[2017-03-08 08:00] VITALS: BP 117/40
[2017-03-08 09:44] LABS: BF NUCLEATED CELLS 386; BF RBC 5855
[2017-03-08 12:18] LABS: CLARITY CLOUDY; COLOR DARK YELLOW; MANUAL DIFF YES; TOTAL VOLUME 60 mL
[2017-03-08 12:19] LABS: BF NEUTROPHILS 7
[2017-03-08 12:20] LABS: BF MACROPHAGE 0
[2017-03-08 16:00] VITALS: BP 106/38
[2017-03-08 17:19] VITALS: BP 123/47
[2017-03-08 19:51] VITALS: BP 113/41
[2017-03-09 04:12] VITALS: BP 96/52
[2017-03-09 07:13] LABS: CALCIUM 8.3 mg/dL (8.5-10.1); CREATININE 1.2 mg/dL (0.6-1.0); POTASSIUM 4.5 mmol/L (3.5-5.1)
[2017-03-09 08:00] VITALS: BP 113/32; BP 117/30
[2017-03-09 10:09] LABS: BODY FLUID ALBUMIN 2.1 g/dL (()); BODY FLUID AMYLASE 26 U/L (()); BODY FLUID GLUCOSE 103 mg/dL (()); BODY FLUID LDH 68 IU/L (()); BODY FLUID PROTEIN 3.1 g/dL (())
[2017-03-09 16:00] VITALS: BP 104/38
[2017-03-09 19:45] VITALS: BP 98/33
[2017-03-10 04:15] LABS: HEMATOCRIT 27.5 % (37.0-47.0); HEMOGLOBIN 9.4 gm/dL (12.0-15.0); MCH 30.8 pg (26.0-34.0); MCHC 34.3 g/dL (28.0-37.0); RBC 3.06 mil/uL (4.20-5.00); RDW 13.3 % (10.5-14.5); WBC 9.7 thou/uL (4.0-11.0)
[2017-03-10 04:25] VITALS: BP 114/31
[2017-03-10 04:26] LABS: PROTIME 10.4 Seconds (9.3-11.4)
[2017-03-10 04:29] LABS: CALCIUM 8.6 mg/dL (8.5-10.1); CREATININE 1.2 mg/dL (0.6-1.0); POTASSIUM 4.3 mmol/L (3.5-5.1)
[2017-03-10 08:00] VITALS: BP 109/42
[2017-03-10 16:00] VITALS: BP 104/32
[2017-03-10 19:50] VITALS: BP 110/32
[2017-03-11 04:55] VITALS: BP 109/37
[2017-03-11 07:34] VITALS: BP 109/37
[2017-03-11 08:00] VITALS: BP 116/39
[2017-03-11 16:00] VITALS: BP 111/41
== END 2017-03-11 17:15 | disposition home health service (06) | DRG 291 ==
LOC: ER 11:05 → EROBS 12:50 → 4S 12:50
PROVIDERS: Emergency Medicine; Hospitalist; Internal Medicine Pulmonary Disease; Nurse Practitioner; Radiology Vascular & Interventional Radiology
PROC: 0W993ZX Drainage of Right Pleural Cavity, Percutaneous Approach, Diagnostic (ICD-10-PCS; principal; 2017-03-07)
PROC: 0W9B3ZX Drainage of Left Pleural Cavity, Percutaneous Approach, Diagnostic (ICD-10-PCS; 2017-03-08)
DX: I13.0 Hypertensive heart and chronic kidney disease with heart failure and stage 1 through stage 4 chronic kidney disease, or unspecified chronic kidney disease (principal); I50.33 Acute on chronic diastolic (congestive) heart failure; J96.21 Acute and chronic respiratory failure with hypoxia; J90 Pleural effusion, not elsewhere classified; I38 Endocarditis, valve unspecified; E78.5 Hyperlipidemia, unspecified; N18.3 Chronic kidney disease, stage 3 (moderate); I48.0 Paroxysmal atrial fibrillation; I34.0 Nonrheumatic mitral (valve) insufficiency; Z87.01 Personal history of pneumonia (recurrent); Z85.3 Personal history of malignant neoplasm of breast; Z91.81 History of falling; Z90.710 Acquired absence of both cervix and uterus; Z79.82 Long term (current) use of aspirin; Z79.899 Other long term (current) drug therapy
CPT/HCPCS: 10100

== ENCOUNTER → 2017-03-06 | Outpatient (CLI) | payer MEDICARE ==
[~2017-03-06] VITALS: Ht 154.9 cm; Wt 74.8 kg
[~2017-03-06] MED LIST changes: +DEMADEX20 MG PO
[2017-03-06 08:06] VITALS: BP 134/76
[2017-03-06 08:37] LABS: HEMATOCRIT 30.4 % (37.0-47.0); MCV 91.1 fL (80.0-100.0); RBC 3.34 mil/uL (4.20-5.00); RDW 13.3 % (10.5-14.5); WBC 9.9 thou/uL (4.0-11.0)
[2017-03-06 08:49] LABS: CALCIUM 9.1 mg/dL (8.5-10.1); CREATININE 1.3 mg/dL (0.6-1.0); POTASSIUM 3.7 mmol/L (3.5-5.1)
[2017-03-06 08:50] LABS: PROTIME 10.5 Seconds (9.3-11.4)
[2017-03-07 07:39] VITALS: BP 134/76
== END ==
LOC: SPEC 07:34
PROVIDERS: Internal Medicine Pulmonary Disease
DX: Z53.9 Procedure and treatment not carried out, unspecified reason (principal)
CPT/HCPCS: 62110; 62900; 70005

== ENCOUNTER → 2017-03-31 | Outpatient (CLI) | payer MEDICARE ==
[~2017-03-31] MED LIST changes: +DEMADEX20 MG PO
== END ==
LOC: RAD 13:46
DX: J18.9 Pneumonia, unspecified organism (principal); J90 Pleural effusion, not elsewhere classified; J98.11 Atelectasis

== ENCOUNTER → 2017-04-04 | Outpatient (CLI) | payer MEDICARE ==
--- NOTE | ~2017-04-04 | CNG ---
[facility] [place] [address] CYTO-NONGYN REPORT PROCEDURE Name: SHAWANDA ARRIAGA I Room #: REG AGATHAJoe Roy.#: [id number] Admission: 04/04/17 Date of : [birth year] Discharge: Report #: [id number] Path Case #: [id number] CYTOPATHOLOGY REPORT COLLECTION DATE: 04/04/2017 RECEIVED DATE: 04/04/2017 SUBMITTING PHYS: Dr. Allen Martinez OTHER PHYS: Dr. Juan David Jonas CLINICAL HISTORY: Effusion. SPECIMEN(S) RECEIVED: A.Pleural fluid * * * * * * * * * * * * FINAL DIAGNOSIS: A. Pleural fluid: - No malignant epithelial cells identified. Few mesothelial cells are present in a background of chronic inflammation. PATHOLOGIST: Shirley Hummel M.D. REPORT ELECTRONICALLY SIGNED BY: Shirley Hummel M.D. DATE/TIME: 04/07/2017 17:05 * * * * * * * * * * * * GROSS PATHOLOGY: A. Pleural fluid: The specimen is submitted unfixed, labeled "Shawanda Arriaga I". Received by the Cytology Department is 15 mL of cloudy kayden fluid. One ThinPrep slide and a formalin fixed cell block were prepared. (clt 8.18) SURGICAL GARMENT INSPECTOR(S): SERGEI Bridges(ASCP) INITIAL CPT CODE(S): A; 68862, 96516 Professional services performed by [facility] at [facility] [address] [address] Technical services performed by [facility] at [address] [place] [address]., [address], [place] [address]. [facility] [address] [place] [address], [facility] [address] [place] [address] PHONE: [phone] [facility] [address] [place] [address] CYTO-NONGYN REPORT PROCEDURE Name: SHAWANDA ARRIAGA I Room #: REG CL Manuela.#: [id number] Admission: 04/04/17 Date of : [birth year] Discharge: Report #: [id number] Path Case #: [id number] DIRECTOR: Cliff Moses M.D. * * * END OF REPORT * * *
[2017-04-04 08:26] LABS: PROTIME 10.2 Seconds (9.3-11.4)
[2017-04-04 09:45] LABS: BF NUCLEATED CELLS 733; BF RBC 4758
[2017-04-04 09:46] LABS: CLARITY CLOUDY; COLOR AMBER; TOTAL VOLUME 60 mL
[2017-04-04 10:26] LABS: MANUAL DIFF YES
[2017-04-04 10:27] LABS: BF NEUTROPHILS 2
[2017-04-05 14:07] LABS: BODY FLUID ALBUMIN 1.6 g/dL (()); BODY FLUID AMYLASE 26 U/L (()); BODY FLUID GLUCOSE 100 mg/dL (()); BODY FLUID LDH 65 IU/L (()); BODY FLUID PROTEIN 2.8 g/dL (())
== END | disposition home or self-care (01) ==
LOC: ULTRA 07:42
PROVIDERS: Internal Medicine Pulmonary Disease
DX: J90 Pleural effusion, not elsewhere classified (principal); I50.9 Heart failure, unspecified; J44.1 Chronic obstructive pulmonary disease with (acute) exacerbation; Z79.82 Long term (current) use of aspirin; Z79.899 Other long term (current) drug therapy; Z98.890 Other specified postprocedural states

== ENCOUNTER → 2017-04-17 | Outpatient (CLI) | payer MEDICARE | LOC: RAD 13:01 | DX: I51.7 Cardiomegaly (principal); J90 Pleural effusion, not elsewhere classified ==

== ENCOUNTER → 2017-04-30 | Outpatient (CLI) | payer MEDICARE | LOC: RAD 09:57 | DX: J90 Pleural effusion, not elsewhere classified (principal) ==